=== PATIENT | female | born 1985 | race Caucasian/White ===

== ENCOUNTER → 2020-06-29 14:44 | Outpatient (BNVA) | payer BC, SELFPAY | PROVIDERS: PCP Family Medicine; Visit Provider Advanced Practice Midwife | DX: Z76.89 Persons encountering health services in other specified circumstances (principal) ==

== ENCOUNTER → 2020-07-13 15:38 | Outpatient (BNVA) | payer BC, SELFPAY | PROVIDERS: PCP Family Medicine; Visit Provider Advanced Practice Midwife | DX: Z76.89 Persons encountering health services in other specified circumstances (principal) ==

== ENCOUNTER 2020-08-15 09:04 | Outpatient (REF) | payer BC, SELFPAY ==
[2020-08-16 09:42] LABS: BV Int Neg Control Negative (Negative); BV Int Pos Control Positive (Positive)
== END 2020-08-15 09:05 | disposition home or self-care (01) ==
LOC: HO.LAB 09:04
PROVIDERS: Visit Provider Obstetrics & Gynecology
DX: R10.2 Pelvic and perineal pain (principal)
CPT/HCPCS: 87480; 87510; 87660

== ENCOUNTER 2020-10-04 10:43 | Emergency (ER) | payer BC, SELFPAY ==
--- NOTE | 2020-10-04 09:34 | ECG_ITS ---
Test Reason : TACHYCARDIA Blood Pressure : / mmHG Vent. Rate : 097 BPM Atrial Rate : 097 BPM P-R Int : 140 ms QRS Dur : 068 ms QT Int : 370 ms P-R-T Axes : 030 051 032 degrees QTc Int : 469 ms Normal sinus rhythm Normal ECG When compared with ECG of 04-OCT-2020 11:01, No significant change was found Referred By: Chante Lee Electronically Signed By:BUDDY FORRESTER MD
--- NOTE | 2020-10-04 10:54 | ECG_ITS ---
Test Reason : CHEST PAIN Blood Pressure : / mmHG Vent. Rate : 092 BPM Atrial Rate : 092 BPM P-R Int : 140 ms QRS Dur : 066 ms QT Int : 366 ms P-R-T Axes : 039 075 041 degrees QTc Int : 452 ms Poor data quality, interpretation may be adversely affected Normal sinus rhythm Normal ECG No previous ECGs available Referred By: Generic ED Physician Electronically Signed By:BUDDY FORRESTER MD
[2020-10-04 11:06] VITALS: PULSE 92; RESP 16; TEMP 36.9; O2SAT 100; BMI 26.1
[2020-10-04 17:36] VITALS: BP 132/72; PULSE 100; RESP 18; TEMP 37.1; O2SAT 100
--- NOTE | 2020-10-04 17:43 | ED_ITS ---
HPI - Arrhythmia/Palpitations General Chief Complaint: Arrhythmia/Palpitations Stated Complaint: CHEST PRESSURE Time Seen by Provider: 10/04/20 17:14 Source: patient Mode of arrival: ambulatory Limitations: no limitations History of Present Illness HPI narrative: 34 y/o female with history of COVID-19 about 1 month ago presents to the ED with intermittent palpitations as well as an epsiode of nausea and chest tightness that occurred while she was driving to work this morning. Symptoms are now resolved. She was admitted at [facility] when she was dx with COVID due to tachycardia (sinus) to 140's. She reportedly had a normal ECHO. She went back to the ED at [place] with palpitations and was start ed on propranolol 4 days ago. She denies SOB, chest pain, N/V/D. Negative personal history of cardiac issues but positive history in her sister who in her 30's from complications of drug use and heart attack. complaint: palpitations Onset (ago): week(s) Duration: intermittent Severity: moderate Context: occurred during rest Associated symptoms: chest pain and anxiety Related Data Previous Rx's Medication Instructions Recorded nystatin 100,000 unit/gram topical 1 applic TOPICAL BID #15 g 07/13/20 ointment Allergies Allergy/AdvReac Type Severity Reaction Status Date / Time No Known Allergies Allergy Unknown Verified 08/15/20 09:25 Review of Systems Review of Systems: Constitutional: No Fever, No Chills ENT/Mouth: No sore throat, No Rhinorrhea, No Swallowing Difficulty Cardiovascular: + Chest Pain, No SOB, No Orthopnea, No Edema Respiratory: No Cough, No Sputum, No Wheezing, No dyspnea Gastrointestinal: + Nausea, No Vomiting, No Diarrhea, No abdominal Pain Genitourinary: No Dysuria, No Urinary Frequency, No Hematuria Musculoskeletal: No joint pain, No Myalgias Skin: No Skin Lesions, No rash Neuro: No Weakness, No Numbness, + Dizziness, No Headache Psych: + Anxiety/Panic, No Depression Heme/Lymph: No Bruising PMFSH Past Medical History Attestation statement: The following information was validated with the patient. Surgical History History of 3 sections Hx of tubal ligation Social History Social History Alcohol intake: never Smoking Status: Never smoker Advance Directives: No Advance Directives Information Provided: No Sexual orientation: Straight/Heterosexual Gender identity: female Physical Exam Vital Signs: Vital Signs: Last Vital Signs Temp 98.8 F 10/04/20 17:36 Pulse 100 10/04/20 17:36 Resp 18 10/04/20 17:36 BP 132/72 10/04/20 17:36 Pulse Ox 100 10/04/20 17:36 Body Mass Index 26.1 Appearance: Alert. Oriented X3. No acute distress. Eyes: Pupils equal, round and reactive to light. ENT: Pharynx normal. Neck: Normal inspection. Neck supple. CVS: Normal heart rate and rhythm. Pulses normal. No anterior chest wall tenderness. Respiratory: No respiratory distress. Breath sounds normal. Abdomen: Soft and nontender. +BS x4 Skin: Skin warm and dry. Normal skin color. Normal skin turgor. No rashes. Extremities: No lower extremity edema. Negative Loraine's sign Neuro: Oriented X 3. No motor deficit. No sensory deficit. Course Course Course Narrative: 34 y/o female with history of COVID-19 presenting with palpitations since her diagnosis 1 month ago. Seen at [place] ED and started on Propranolol. Given family hx will need to f/u ME and given COVID hx will need to r/o PE. She is currently asymptomatic with HR 90's. Exam is benign. EKG, lab work pending. Reevaluation(s) Reevaluation #1: Troponin negative. DDIMER negative which are reassuring against ACS and PE. She has already placed a call out to [facility] who plan to call her in 2 days to arrange an appointment. No arrhythmias seen on monitor while she has been in the ED. She feels well. She is stable for discharge. MDM - Arrhythmia/Palpitations Differential Diagnosis Differential diagnosis: Likely palpitations, anxiety, sinus tachycardia, artial fibrillation, artial flutter, ventricular premature beats, supraventricular tachycardia and ventricular tachycardia Medical Records Attestation: I reviewed the patient's medical records. Lab Data Attestation: I reviewed the patient's lab results. Result diagrams: 10/04/20 17:35 10/04/20 17:35 Labs: Lab Results 10/04/20 10/04/20 10/04/20 Range/Units 17:35 17:35 17:35 WBC 6.2 (4.8-10.8) X10*3/uL RBC 4.68 (4.20-5.50) X10*6/uL Hgb 12.1 (12.0-16.0) g/dl Hct 38.4 (37-47) % MCV 82.1 (80-98) fL MCH 25.9 L (27.0-33.0) pg MCHC 31.5 (31.0-35.0) g/dl RDW 14.6 (11.0-16.0) % Plt Count 366 (160-400) X10*3/uL MPV 10.0 (9.4-12.3) fL Immature Gran % (Auto) 0.2 (0.0-0.4) % Neut % (Auto) 60.4 (45-73) % Lymph % (Auto) 29.5 (20-40) % [place] % (Auto) 7.9 (2-11) % Eos % (Auto) 1.4 (0-4) % Baso % (Auto) 0.6 (0-2) % Lymph # (Auto) 1.8 (1.2-4.9) X10*3/uL [place] # (Auto) 0.5 (0.1-1.2) X10*3/uL Eos # (Auto) 0.1 (0.0-0.4) X10*3/uL Baso # (Auto) 0.0 (0.0-0.2) X10*3/uL Abs Immat Gran (auto) 0.01 (0.00-0.03) X10*3/uL Absolute Neuts (auto) 3.8 (2.0-8.3) X10*3/uL Absolute Nucleated RBC 0.000 (0.0-0.012) X10*3/uL Nucleated RBC % (auto) 0.0 (0.0-0.2) /100WBC D-Dimer < 200 NG/ML Hold Blue Top SEE NOTE Sodium 140 (135-145) mmol/L Potassium 3.7 (3.3-5.1) mmol/L Chloride 104 (96-108) mmol/L Carbon Dioxide 26 (22-29) mmol/L Anion Gap 14 (12-20) BUN 9 (9-16) mg/dL Creatinine 0.76 (0.5-1.4) mg/dL Estim Creat Clear Calc 104.9 Estimated GFR > 60 Random Glucose 83 (60-115) mg/dL Calcium 9.4 (8.4-10.2) mg/dL Magnesium 2.0 (1.6-2.6) mg/dL Total Bilirubin 0.4 (0.0-1.0) mg/dL Direct Bilirubin 0.2 (0.0-0.5) mg/dL AST 14 (5-31) U/L ALT 9 (0-31) U/L Alkaline Phosphatase 46 (39-117) U/L Troponin I High Sens (<3.5-17.0) ng/L B-Natriuretic Peptide (<100) pg/mL Total Protein 7.5 (6.5-8.0) g/dL Albumin 4.6 (3.5-5.0) g/dL TSH (0.32-4.0) uIU/mL Urine Color Urine Appearance Urine pH (5.0-8.0) Ur Specific [place] (1.005-1.025) Urine Protein (NEG-TRACE) MG/DL Urine Glucose (UA) (NEG) MG/DL Urine Ketones (NEG) MG/DL Urine Blood (NEG) Urine Nitrite (NEG) Ur Leukocyte Esterase (NEG) Urine Test (NEGATIVE) Urine Opiates Screen (Not Detect) Ur Barbiturates Screen (Not Detect) Ur Phencyclidine Scrn (Not Detect) Ur Amphetamines Screen (Not Detect) U Benzodiazepines Scrn (Not Detect) Urine Cocaine Screen (Not Detect) U Marijuana (THC) Screen (Not Detect) Ethyl Alcohol mg/dL 10/04/20 10/04/20 10/04/20 Range/Units 17:35 17:35 17:35 WBC (4.8-10.8) X10*3/uL RBC (4.20-5.50) X10*6/uL Hgb (12.0-16.0) g/dl Hct (37-47) % MCV (80-98) fL MCH (27.0-33.0) pg MCHC (31.0-35.0) g/dl RDW (11.0-16.0) % Plt Count (160-400) X10*3/uL MPV (9.4-12.3) fL Immature Gran % (Auto) (0.0-0.4) % Neut % (Auto) (45-73) % Lymph % (Auto) (20-40) % [place] % (Auto) (2-11) % Eos % (Auto) (0-4) % Baso % (Auto) (0-2) % Lymph # (Auto) (1.2-4.9) X10*3/uL [place] # (Auto) (0.1-1.2) X10*3/uL Eos # (Auto) (0.0-0.4) X10*3/uL Baso # (Auto) (0.0-0.2) X10*3/uL Abs Immat Gran (auto) (0.00-0.03) X10*3/uL Absolute Neuts (auto) (2.0-8.3) X10*3/uL Absolute Nucleated RBC (0.0-0.012) X10*3/uL Nucleated RBC % (auto) (0.0-0.2) /100WBC D-Dimer NG/ML Hold Blue Top Sodium (135-145) mmol/L Potassium (3.3-5.1) mmol/L Chloride (96-108) mmol/L Carbon Dioxide (22-29) mmol/L Anion Gap (12-20) BUN (9-16) mg/dL Creatinine (0.5-1.4) mg/dL Estim Creat Clear Calc Estimated GFR Random Glucose (60-115) mg/dL Calcium (8.4-10.2) mg/dL Magnesium (1.6-2.6) mg/dL Total Bilirubin (0.0-1.0) mg/dL Direct Bilirubin (0.0-0.5) mg/dL AST (5-31) U/L ALT (0-31) U/L Alkaline Phosphatase (39-117) U/L Troponin I High Sens < 3.5 (<3.5-17.0) ng/L B-Natriuretic Peptide 10 (<100) pg/mL Total Protein (6.5-8.0) g/dL Albumin (3.5-5.0) g/dL TSH 1.68 (0.32-4.0) uIU/mL Urine Color Urine Appearance Urine pH (5.0-8.0) Ur Specific [place] (1.005-1.025) Urine Protein (NEG-TRACE) MG/DL Urine Glucose (UA) (NEG) MG/DL Urine Ketones (NEG) MG/DL Urine Blood (NEG) Urine Nitrite (NEG) Ur Leukocyte Esterase (NEG) Urine Test (NEGATIVE) Urine Opiates Screen (Not Detect) Ur Barbiturates Screen (Not Detect) Ur Phencyclidine Scrn (Not Detect) Ur Amphetamines Screen (Not Detect) U Benzodiazepines Scrn (Not Detect) Urine Cocaine Screen (Not Detect) U Marijuana (THC) Screen (Not Detect) Ethyl Alcohol < 10 mg/dL 10/04/20 10/04/20 Range/Units 17:59 17:59 WBC (4.8-10.8) X10*3/uL RBC (4.20-5.50) X10*6/uL Hgb (12.0-16.0) g/dl Hct (37-47) % MCV (80-98) fL MCH (27.0-33.0) pg MCHC (31.0-35.0) g/dl RDW (11.0-16.0) % Plt Count (160-400) X10*3/uL MPV (9.4-12.3) fL Immature Gran % (Auto) (0.0-0.4) % Neut % (Auto) (45-73) % Lymph % (Auto) (20-40) % [place] % (Auto) (2-11) % Eos % (Auto) (0-4) % Baso % (Auto) (0-2) % Lymph # (Auto) (1.2-4.9) X10*3/uL [place] # (Auto) (0.1-1.2) X10*3/uL Eos # (Auto) (0.0-0.4) X10*3/uL Baso # (Auto) (0.0-0.2) X10*3/uL Abs Immat Gran (auto) (0.00-0.03) X10*3/uL Absolute Neuts (auto) (2.0-8.3) X10*3/uL Absolute Nucleated RBC (0.0-0.012) X10*3/uL Nucleated RBC % (auto) (0.0-0.2) /100WBC D-Dimer NG/ML Hold Blue Top Sodium (135-145) mmol/L Potassium (3.3-5.1) mmol/L Chloride (96-108) mmol/L Carbon Dioxide (22-29) mmol/L Anion Gap (12-20) BUN (9-16) mg/dL Creatinine (0.5-1.4) mg/dL Estim Creat Clear Calc Estimated GFR Random Glucose (60-115) mg/dL Calcium (8.4-10.2) mg/dL Magnesium (1.6-2.6) mg/dL Total Bilirubin (0.0-1.0) mg/dL Direct Bilirubin (0.0-0.5) mg/dL AST (5-31) U/L ALT (0-31) U/L Alkaline Phosphatase (39-117) U/L Troponin I High Sens (<3.5-17.0) ng/L B-Natriuretic Peptide (<100) pg/mL Total Protein (6.5-8.0) g/dL Albumin (3.5-5.0) g/dL TSH (0.32-4.0) uIU/mL Urine Color YELLOW Urine Appearance CLEAR Urine pH 6.5 (5.0-8.0) Ur Specific [place] 1.015 (1.005-1.025) Urine Protein NEG (NEG-TRACE) MG/DL Urine Glucose (UA) NEG (NEG) MG/DL Urine Ketones >=80 (NEG) MG/DL Urine Blood NEG (NEG) Urine Nitrite NEG (NEG) Ur Leukocyte Esterase NEG (NEG) Urine Test NEGATIVE (NEGATIVE) Urine Opiates Screen Not Detected (Not Detect) Ur Barbiturates Screen Not Detected (Not Detect) Ur Phencyclidine Scrn Not Detected (Not Detect) Ur Amphetamines Screen Not Detected (Not Detect) U Benzodiazepines Scrn Not Detected (Not Detect) Urine Cocaine Screen Not Detected (Not Detect) U Marijuana (THC) Screen Not Detected (Not Detect) Ethyl Alcohol mg/dL ECG Data Attestation: I personally reviewed and interpreted this ECG as follows: ECG interpretation date: 10/04/20 Interpretation: 11:01 - normal sinus rhythm, HR 92 bpm, normal NE interval, normal Qtc, artifact present, poor quality 17:46 - normal sinus rhythm, HR 97 bpm, normal NE interval, normal QTc. no ST segment elevations Scores Heart Score History: -0- slightly suspicious ECG: -0- normal Age: -0- < or = 45 Risk factory: -0- no risk factors known Troponin: -0- < or = normal limit Score: 0 Risk: 1.7% Discharge Plan Discharge Clinical Impression: Palpitations Patient Disposition: Home, Self-Care Instructions: Heart Palpitations (ED) Additional Instructions: Your workup today was normal. Your EKG was unremarkable. Recommend continuing the propranolol. Recommend follow up with Cardiology for further workup. If you have persistent or worsening symptoms come back to the ER for further evalution. Prescriptions: No Action nystatin 100,000 unit/gram ointment 1 applic topical BID Qty: 15 RF: 1 Referrals: Tone Dugan MD [Physician] - 2 days (palpitations s/p COVID)
[2020-10-04 17:48] LABS: MANUAL DIFF FLAG NO
[2020-10-04 17:52] LABS: Basophils Percent Auto 0.6 % (0-2); Eosinophils Absolute Auto 0.1 X10*3/uL (0.0-0.4); Eosinophils Percent Auto 1.4 % (0-4); Hematocrit 38.4 % (37-47); Hemoglobin 12.1 g/dl (12.0-16.0); Imm Gran Abs Auto 0.01 X10*3/uL (0.00-0.03); Imm Gran Pct Auto 0.2 % (0.0-0.4); Lymphocytes Absolute Auto 1.8 X10*3/uL (1.2-4.9); Lymphocytes Percent Auto 29.5 % (20-40); Mean Corpuscular HGB Conc 31.5 g/dl (31.0-35.0); Mean Corpuscular Hemoglobin 25.9 pg (27.0-33.0); Mean Corpuscular Volume 82.1 fL (80-98); Monocytes Absolute Auto 0.5 X10*3/uL (0.1-1.2); Monocytes Percent Auto 7.9 % (2-11); Neutrophils Absolute Auto 3.8 X10*3/uL (2.0-8.3); Neutrophils Percent Auto 60.4 % (45-73); Platelet Count 366 X10*3/uL (160-400); Red Blood Count 4.68 X10*6/uL (4.20-5.50); Red Cell Distribution Width 14.6 % (11.0-16.0); White Blood Count 6.2 X10*3/uL (4.8-10.8)
[2020-10-04 18:02] LABS: D Dimer < 200 NG/ML
[2020-10-04 18:12] LABS: Glucose Urine UA NEG (NEG); Leukocyte Esterase Urine NEG (NEG); Nitrite Urine NEG (NEG); PH 6.5 (5.0-8.0); Specific Gravity - Urine 1.015 (1.005-1.025); Urine Blood NEG (NEG); Urine Ketones >=80 MG/DL (NEG); Urine Protein NEG (NEG-TRACE)
[2020-10-04 18:12] LABS: Ethanol < 10 mg/dL
[2020-10-04 18:15] LABS: Alanine Aminotransferase 9 U/L (0-31); Albumin Level 4.6 g/dL (3.5-5.0); Alkaline Phosphatase 46 U/L (39-117); Anion Gap 14 (12-20); Aspartate Amino Transferase 14 U/L (5-31); Bilirubin Direct 0.2 mg/dL (0.0-0.5); Bilirubin Total 0.4 mg/dL (0.0-1.0); Blood Urea Nitrogen 9 mg/dL (9-16); Calcium 9.4 mg/dL (8.4-10.2); Carbon Dioxide 26 mmol/L (22-29); Chloride 104 mmol/L (96-108); Creatinine Clr Calc Pharmacy 104.9; Estimated Glomerular Filt Rate > 60; Glucose Random 83 mg/dL (60-115); Potassium 3.7 mmol/L (3.3-5.1); Sodium 140 mmol/L (135-145); Total Protein 7.5 g/dL (6.5-8.0)
[2020-10-04 18:16] LABS: Appearance Urine CLEAR; Color Urine YELLOW
[2020-10-04 18:17] LABS: UPreg QC Valid YES; Urine Pregnancy NEGATIVE (NEGATIVE)
[2020-10-04 18:19] LABS: B Type Natriuretic Peptide 10 pg/mL (<100); Troponin-I High Sensitivity < 3.5 ng/L (<3.5-17.0)
[2020-10-04 18:33] LABS: TSH reflex Free T4 1.68 uIU/mL (0.32-4.0)
[2020-10-04 18:34] LABS: Amphetamine Screen Urine Not Detected (Not Detect); Barbiturates, Urine Not Detected (Not Detect); Benzodiazepines Screen Urine Not Detected (Not Detect); Cannabinoid Screen Urine Not Detected (Not Detect); Cocaine Screen Urine Not Detected (Not Detect); Opiate Screen Urine Not Detected (Not Detect); Phencyclidine Screen Urine Not Detected (Not Detect)
== END 2020-10-04 19:11 | disposition home or self-care (01) ==
PROVIDERS: Physician Assistant; Emergency Provider Emergency Medicine; PCP Family Medicine
DX: R00.2 Palpitations (principal); Z86.16 Personal history of COVID-19
CPT/HCPCS: 36415; 80048; 80076; 80307; 80320; 81003; 81025; 83735; 83880; 84443; 84484; 85025; 85379; 93005; 99284

== ENCOUNTER 2020-10-25 12:34 | Emergency (ER) | payer BC, SELFPAY ==
--- NOTE | ~2020-10-25 | XR_ITS ---
EXAMINATION: CHEST 1 VIEW CLINICAL INFORMATION: Chest pain. COMPARISON: None. TECHNIQUE: An AP view of the chest is provided. FINDINGS: The cardiac silhouette is not enlarged. The mediastinal and hilar contours are unremarkable. There are neither pleural effusions nor pneumothoraces. There are no consolidations. The osseous structures are unremarkable. XR/XR chest 1V IMPRESSION: No evidence for acute disease.
--- NOTE | 2020-10-25 12:47 | ECG_ITS ---
Test Reason : CP Blood Pressure : / mmHG Vent. Rate : 100 BPM Atrial Rate : 100 BPM P-R Int : 156 ms QRS Dur : 072 ms QT Int : 364 ms P-R-T Axes : 044 057 035 degrees QTc Int : 469 ms Normal sinus rhythm Normal ECG When compared with ECG of 04-OCT-2020 17:46, No significant change was found Referred By: Generic ED Physician Electronically Signed By:BUDDY FORRESTER MD
[2020-10-25 13:00] VITALS: BP 111/88; PULSE 92; RESP 18; TEMP 36.6; O2SAT 100; BMI 26.3
--- NOTE | 2020-10-25 20:41 | ED_ITS ---
HPI - Chest Pain General Chief Complaint: Chest Pain Stated Complaint: chest pressure Time Seen by Provider: 10/25/20 20:16 Source: patient Mode of arrival: ambulatory Limitations: no limitations History of Present Illness HPI narrative: 34 years old female tested positive for COVID about 6 weeks ago, symptoms was only loss of taste and smell, patient after developed COVID started to have constant chest pain and palpitation for the past 6 weeks, patient was seen and evaluated at [facility] required 2 days admission in the hospital for cardiac monitoring, reportedly all the workup was negative, patient also had cardiology workup including echocardiogram reportedly was unremarkable study (reports are not available) patient also has a follow-up appointment with cardiology in 1 week. Patient presented today with constant 6 weeks of chest pressure, described it as mild, pressure in character, no radiation, nothing make it worse, nothing makes it better, associated with palpitations sometimes on and off.. Sister at young age but had more complicated history of alcoholism and history of alcohol-related cardiomyopathy. Patient admitted to history of anxiety. No recent travel, no lower extremity swelling or tenderness, no history of PE/DVT. Related Data Previous Rx's Medication Instructions Recorded nystatin 100,000 unit/gram topical 1 applic TOPICAL BID #15 g 07/13/20 ointment Allergies Allergy/AdvReac Type Severity Reaction Status Date / Time No Known Allergies Allergy Unknown Verified 10/25/20 13:00 Review of Systems Review of Systems: All other systems are reviewed and are negative Constitutional: Reports as per HPI and Reports no additional constitutional complaints Eyes: Reports as per HPI and Reports no additional eye complaints Reports system reviewed and no additional complaints, except as documented Cardiovascular: Reports as per HPI and Reports no additional cardiovascular complaints Respiratory: Reports as per HPI and Reports no additional respiratory complaints Gastrointestinal: Reports as per HPI and Reports no additional gastrointestinal complaints Genitourinary: Reports no additional female genitourinary complaints Musculoskeletal: Reports no additional musculoskeletal complaints Skin/Breast: Reports system reviewed and no additional complaints, except as docu Psychiatric: Reports no additional psychiatric complaints Endocrine: Reports no additional endocrine complaints Hematologic/Lymphatic: Reports no additional hematologic/lymphatic complaints Allergic/Immunologic: Reports no additional allergic/immunologic complaints Reports system reviewed and no additional complaints, except as documented and Reports Abnormal speech present [facility] Past Medical History Medical History COVID-19 Surgical History History of 3 sections Hx of tubal ligation Social History Social History Alcohol intake: never Smoking Status: Never smoker Advance Directives: No Advance Directives Information Provided: No Sexual orientation: Straight/Heterosexual Gender identity: female Physical Exam Vital Signs: Vital Signs: Last Vital Signs Temp 97.8 F 10/25/20 13:00 Pulse 92 10/25/20 13:00 Resp 18 10/25/20 13:00 BP 111/88 10/25/20 13:00 Pulse Ox 100 10/25/20 13:00 Body Mass Index 26.3 Vital signs have been reviewed as appeared to be correct. Blood pressure normal. Heart rate normal. Respiration rate normal. Temperature normal. Oxygen saturation normal. Appearance: Alert. Oriented X3. No acute distress. Appear anxious Head: Normal external exam. Normocephalic. Atraumatic. No Norris signs noted. No raccoon eyes noted Eyes: PERRLA. EOMI. Conjunctiva and sclera normal. Eyelids normal. ENT: TM's Normal. Pharynx normal. Uvula midline. Moist mucous membranes. No trismus noted. No drooling noted. No muffled voice noted. Neck: Normal inspection. Neck supple. FROM. No adenopathy. Thyroid Normal. No meningeal signs. No neck mass noted. CVS: Normal heart rate and rhythm. Heart sound normal. No murmurs noted. Pulses normal throughout. Respiratory: No respiratory distress. Painless inspiration. Breath sounds normal. No wheezes/rales/rhonchi noted. Chest nontender. No accessory muscle usage noted or decreased air movement noted. Abdomen: Soft and nontender. Bowel sounds normal in all 4 quadrants. No distention noted. No organomegaly noted. No visible injury noted. Back: No CVA tenderness. Full range of motion noted. Skin: Skin warm and dry. Normal skin color. Normal skin turgor. No rashes/lesions/lacerations noted. Extremities: No lower extremity edema. Extremities exhibit normal range of motion. Extremities nontender. Neuro: Oriented X 3. No motor deficit. No sensory deficit. Reflexes normal. Course Course Course Narrative: Assessment and plan. 34-year-old female recent infection was COVID-19 left her with loss of taste and smell (patient stated that taste and smell are back) but she is developing intermittent palpitation, patient was seen at [facility] and hospitalized for 2 days with reportedly negative workup, patient also was seen by outpatient vocational training instructor with a negative echocardiogram. Patient appears anxious, with unremarkable workup in the emergency department. Patient unable to give urine but patient confirmed there is no symptoms for UTI/no chance of being . MDM - Chest Pain Lab Data Attestation: I reviewed the patient's lab results. Result diagrams: 10/25/20 20:48 10/25/20 20:48 Labs: Lab Results 10/25/20 10/25/20 10/25/20 Range/Units 20:48 20:48 20:48 WBC 5.4 (4.8-10.8) X10*3/uL RBC 4.64 (4.20-5.50) X10*6/uL Hgb 12.0 (12.0-16.0) g/dl Hct 37.9 (37-47) % MCV 81.7 (80-98) fL MCH 25.9 L (27.0-33.0) pg MCHC 31.7 (31.0-35.0) g/dl RDW 14.3 (11.0-16.0) % Plt Count 264 D (160-400) X10*3/uL MPV 10.2 (9.4-12.3) fL Immature Gran % (Auto) 0.2 (0.0-0.4) % Neut % (Auto) 57.8 (45-73) % Lymph % (Auto) 32.1 (20-40) % [place] % (Auto) 7.1 (2-11) % Eos % (Auto) 1.5 (0-4) % Baso % (Auto) 1.3 (0-2) % Lymph # (Auto) 1.7 (1.2-4.9) X10*3/uL [place] # (Auto) 0.4 (0.1-1.2) X10*3/uL Eos # (Auto) 0.1 (0.0-0.4) X10*3/uL Baso # (Auto) 0.1 (0.0-0.2) X10*3/uL Abs Immat Gran (auto) 0.01 (0.00-0.03) X10*3/uL Absolute Neuts (auto) 3.1 (2.0-8.3) X10*3/uL Absolute Nucleated RBC 0.000 (0.0-0.012) X10*3/uL Nucleated RBC % (auto) 0.0 (0.0-0.2) /100WBC D-Dimer < 200 NG/ML Sodium 141 (135-145) mmol/L Potassium 3.8 (3.3-5.1) mmol/L Chloride 105 (96-108) mmol/L Carbon Dioxide 24 (22-29) mmol/L Anion Gap 16 (12-20) BUN 11 (9-16) mg/dL Creatinine 0.72 (0.5-1.4) mg/dL Estim Creat Clear Calc 111.1 Estimated GFR > 60 Random Glucose 80 (60-115) mg/dL Calcium 9.8 (8.4-10.2) mg/dL B-Natriuretic Peptide (<100) pg/mL Lipase 32 (8-78) U/L 10/25/20 Range/Units 20:48 WBC (4.8-10.8) X10*3/uL RBC (4.20-5.50) X10*6/uL Hgb (12.0-16.0) g/dl Hct (37-47) % MCV (80-98) fL MCH (27.0-33.0) pg MCHC (31.0-35.0) g/dl RDW (11.0-16.0) % Plt Count (160-400) X10*3/uL MPV (9.4-12.3) fL Immature Gran % (Auto) (0.0-0.4) % Neut % (Auto) (45-73) % Lymph % (Auto) (20-40) % [place] % (Auto) (2-11) % Eos % (Auto) (0-4) % Baso % (Auto) (0-2) % Lymph # (Auto) (1.2-4.9) X10*3/uL [place] # (Auto) (0.1-1.2) X10*3/uL Eos # (Auto) (0.0-0.4) X10*3/uL Baso # (Auto) (0.0-0.2) X10*3/uL Abs Immat Gran (auto) (0.00-0.03) X10*3/uL Absolute Neuts (auto) (2.0-8.3) X10*3/uL Absolute Nucleated RBC (0.0-0.012) X10*3/uL Nucleated RBC % (auto) (0.0-0.2) /100WBC D-Dimer NG/ML Sodium (135-145) mmol/L Potassium (3.3-5.1) mmol/L Chloride (96-108) mmol/L Carbon Dioxide (22-29) mmol/L Anion Gap (12-20) BUN (9-16) mg/dL Creatinine (0.5-1.4) mg/dL Estim Creat Clear Calc Estimated GFR Random Glucose (60-115) mg/dL Calcium (8.4-10.2) mg/dL B-Natriuretic Peptide < 10 (<100) pg/mL Lipase (8-78) U/L Imaging Data Chest x-ray: Radiologist's impression: No evidence for acute disease. ECG Data ECG #1: Interpretation: Normal sinus rhythm at 100 BPM, normal axis deviation, normal intervals, no ST-T changes. Discharge Plan Discharge Clinical Impression: Palpitation Patient Disposition: Home, Self-Care Instructions: Heart Palpitations (ED) Additional Instructions: Keep your appointment with your vocational training instructor as already scheduled next week. Prescriptions: No Action nystatin 100,000 unit/gram ointment 1 applic topical BID Qty: 15 RF: 1 Referrals: Amalia Fernandez MD [Primary Care Provider] - 2 days
[2020-10-25] MEDS: 0.9 % Sodium Chloride 1,000 ML 999 ML IVCONT (20:51)
[2020-10-25 20:55] LABS: MANUAL DIFF FLAG NO
[2020-10-25 21:00] LABS: Basophils Absolute Auto 0.1 X10*3/uL (0.0-0.2); Basophils Percent Auto 1.3 % (0-2); Eosinophils Absolute Auto 0.1 X10*3/uL (0.0-0.4); Eosinophils Percent Auto 1.5 % (0-4); Hematocrit 37.9 % (37-47); Imm Gran Abs Auto 0.01 X10*3/uL (0.00-0.03); Imm Gran Pct Auto 0.2 % (0.0-0.4); Lymphocytes Absolute Auto 1.7 X10*3/uL (1.2-4.9); Lymphocytes Percent Auto 32.1 % (20-40); Mean Corpuscular HGB Conc 31.7 g/dl (31.0-35.0); Mean Corpuscular Hemoglobin 25.9 pg (27.0-33.0); Mean Corpuscular Volume 81.7 fL (80-98); Mean Platelet Volume 10.2 fL (9.4-12.3); Monocytes Absolute Auto 0.4 X10*3/uL (0.1-1.2); Monocytes Percent Auto 7.1 % (2-11); Neutrophils Absolute Auto 3.1 X10*3/uL (2.0-8.3); Neutrophils Percent Auto 57.8 % (45-73); Platelet Count 264 X10*3/uL (160-400); Red Blood Count 4.64 X10*6/uL (4.20-5.50); Red Cell Distribution Width 14.3 % (11.0-16.0); White Blood Count 5.4 X10*3/uL (4.8-10.8)
[2020-10-25 21:18] LABS: D Dimer < 200 NG/ML
[2020-10-25 21:26] LABS: Anion Gap 16 (12-20); Blood Urea Nitrogen 11 mg/dL (9-16); Calcium 9.8 mg/dL (8.4-10.2); Carbon Dioxide 24 mmol/L (22-29); Chloride 105 mmol/L (96-108); Creatinine Clr Calc Pharmacy 111.1; Estimated Glomerular Filt Rate > 60; Glucose Random 80 mg/dL (60-115); Lipase 32 U/L (8-78); Potassium 3.8 mmol/L (3.3-5.1); Sodium 141 mmol/L (135-145)
[2020-10-25 21:32] LABS: B Type Natriuretic Peptide < 10 pg/mL (<100)
[2020-10-25 22:34] VITALS: PULSE 85; RESP 18; O2SAT 100
== END 2020-10-25 22:45 | disposition home or self-care (01) ==
PROVIDERS: Emergency Provider Emergency Medicine; PCP Family Medicine
DX: R00.2 Palpitations (principal); Z86.16 Personal history of COVID-19; F41.9 Anxiety disorder, unspecified
CPT/HCPCS: 36415; 71045; 80048; 83690; 83880; 85025; 85379; 93005; 96360; 99284

== ENCOUNTER 2020-11-14 11:03 | Emergency (ER) | payer BC, SELFPAY ==
[2020-11-14 11:05] VITALS: BP 148/78; PULSE 109; RESP 18; TEMP 36.7; O2SAT 100; BMI 58.7
--- NOTE | 2020-11-14 12:25 | ED_ITS ---
HPI - General Adult General Chief complaint: General Medical Stated complaint: lung pain Time Seen by Provider: 11/14/20 12:05 Source: patient Mode of arrival: ambulatory Limitations: no limitations History of Present Illness HPI narrative: Patient was sent from urgent care for further evaluation. Patient was seen at urgent care today for chest wall/lung pain for 3 weeks. Patient was seen here October 25 for similar complaints had normal blood work, EKG and x-ray spray. Patient was known for COVID in September. Patient at urgent care this morning was informed that she had a normal EKG and normal chest x-ray. Patient denies any chest pain on inspiration, swelling of lower extremities, calf pain, coughing up blood, fever, chills recent long travel, recent surgery, or any control use. Related Data Previous Rx's Medication Instructions Recorded nystatin 100,000 unit/gram topical 1 applic TOPICAL BID #15 g 07/13/20 ointment Allergies Allergy/AdvReac Type Severity Reaction Status Date / Time No Known Allergies Allergy Unknown Verified 10/25/20 13:00 Review of Systems Constitutional: Constitutional: Reports as per HPI and Reports no additional constitutional complaints Eyes: Eyes: Reports as per HPI and Reports no additional eye complaints ENT: Reports system reviewed and no additional complaints, except as documented and Reports as per HPI Cardiovascular: Cardiovascular: Reports as per HPI, Reports no additional cardiovascular complaints and Reports chest pain (Three weeks) Respiratory: Respiratory: Reports as per HPI and Reports no additional respiratory complaints Gastrointestinal: Gastrointestinal: Reports as per HPI and Reports no additional gastrointestinal complaints Musculoskeletal: Musculoskeletal: Reports no additional musculoskeletal complaints and Reports as per HPI Neurologic: Reports system reviewed and no additional complaints, except as documented and Reports as per HPI Psychiatric: Psychiatric: Reports no additional psychiatric complaints and Reports as per HPI [facility] Past Medical History Medical History COVID-19 Surgical History History of 3 sections Hx of tubal ligation Social History Social History Alcohol intake: never Smoking Status: Never smoker Use of substances other than those prescribed or required for medical reasons: No Advance Directives: No Advance Directives Information Provided: No Sexual orientation: Straight/Heterosexual Gender identity: female Physical Exam Vital Signs: Vital Signs: Last Vital Signs Temp 98.1 F 11/14/20 11:05 Pulse 109 H 11/14/20 11:05 Resp 18 11/14/20 11:05 BP 148/78 H 11/14/20 11:05 Pulse Ox 100 11/14/20 11:05 Body Mass Index 58.7 Const: General: cooperative, healthy appearing, comfortable and no acute distress Orientation/consciousness: patient oriented x3 HENMT: Head: Yes normal to inspection and Yes No palpable skull fracture p resent Eyes: General: appearance normal, both eyes and all related structures Neck: Neck: Yes normal visual inspection, Yes full ROM, Yes no lymphadenopathy, Yes no meningeal signs, Yes trachea midline and No supple Chest: Other: Positive for left chest wall tenderness. Breast exams are normal. Chest palpation & inspection: normal inspection of the chest Resp: Effort & Inspection: normal respiratory effort and able to speak in complete sentences Cardio: Jugular venous distension: no JVD Heart sounds: S1 normal heart sound present and S2 normal heart sound present GI: Inspection: Yes normal to inspection and No abdominal wall ecchymosis Palpation (GI): Soft to palpation, not firm, nontender, no guarding and not rigid : General: No CVA tenderness and Yes no CVA tenderness Back/Spine/Pelvis: Back: no CVA tenderness, No CVA tenderness and No back tenderness Skin: General skin exam: no rashes or lesions noted and elasticity normal Neuro: General: patient oriented x3, gait normal, no meningeal signs and CN's II-XI intact bilaterally Extrem: General: Yes normal to inspection and Yes full ROM Psych: Appearance: grossly normal, well kempt and not disheveled Course Course Course Narrative: Patient states chest x-ray was normal this morning at urgent care as per she has report. Emergent care provider informed her her chest x-ray EKG was normal. Patient will have repeat EKG in the ER also have troponin and D-dimer make sure patient is not having risk for PE. Patient's present PERC score is 1 Reevaluation(s) Reevaluation #1: Patient's troponin D-dimer came back negative. Patient's EKG is normal. Patient blood cell count and lymphocyte slightly low and most likely due to patient being positive for COVID at the end of September. Patient vital signs are stable. D-dimer negative. Perc score 1. Negative for any retractions of chest. Patient speaking in full sentences. This has been going on for 3 weeks. Patient informed to follow-up with PCP. This is the 2nd time patient had presented to the ED with his symptom and D-dimer was negative. Repeat COVID swab came back negative. Not suspecting PE. Time: 14:24 Medical Decision Making MDM Narrative Medical decision making narrative: Chest pain Lab Data Result diagrams: 11/14/20 13:12 11/14/20 13:12 Labs: Lab Results 11/14/20 11/14/20 11/14/20 Range/Units 13:12 13:12 13:12 WBC 3.5 L (4.8-10.8) X10*3/uL RBC 4.41 (4.20-5.50) X10*6/uL Hgb 11.4 L (12.0-16.0) g/dl Hct 36.0 L (37-47) % MCV 81.6 (80-98) fL MCH 25.9 L (27.0-33.0) pg MCHC 31.7 (31.0-35.0) g/dl RDW 14.9 (11.0-16.0) % Plt Count 267 (160-400) X10*3/uL MPV 10.1 (9.4-12.3) fL Immature Gran % (Auto) 0.3 (0.0-0.4) % Neut % (Auto) 68.7 (45-73) % Lymph % (Auto) 21.7 (20-40) % [place] % (Auto) 7.2 (2-11) % Eos % (Auto) 0.9 (0-4) % Baso % (Auto) 1.2 (0-2) % Lymph # (Auto) 0.8 L (1.2-4.9) X10*3/uL [place] # (Auto) 0.3 (0.1-1.2) X10*3/uL Eos # (Auto) 0.0 (0.0-0.4) X10*3/uL Baso # (Auto) 0.0 (0.0-0.2) X10*3/uL Abs Immat Gran (auto) 0.01 (0.00-0.03) X10*3/uL Absolute Neuts (auto) 2.4 (2.0-8.3) X10*3/uL Absolute Nucleated RBC 0.000 (0.0-0.012) X10*3/uL Nucleated RBC % (auto) 0.0 (0.0-0.2) /100WBC PT 13.3 H (10.8-13.0) SEC INR 1.1 (0.9-1.1) APTT 33.8 (24.1-38.0) SEC D-Dimer < 200 NG/ML Sodium 141 (135-145) mmol/L Potassium 3.8 (3.3-5.1) mmol/L Chloride 106 (96-108) mmol/L Carbon Dioxide 27 (22-29) mmol/L Anion Gap 12 (12-20) BUN 9 (9-16) mg/dL Creatinine 0.79 (0.5-1.4) mg/dL Estim Creat Clear Calc 156.3 Estimated GFR > 60 Random Glucose 103 (60-115) mg/dL Calcium 9.4 (8.4-10.2) mg/dL Total Bilirubin 0.6 (0.0-1.0) mg/dL AST 15 (5-31) U/L ALT 10 (0-31) U/L Alkaline Phosphatase 44 (39-117) U/L Troponin I High Sens (<3.5-17.0) ng/L Total Protein 7.5 (6.5-8.0) g/dL Albumin 4.7 (3.5-5.0) g/dL Beta HCG, Quant mIU/mL COVID-19 ([facility]) (Negative) COVID-19 Clin Com 11/14/20 11/14/20 11/14/20 Range/Units 13:12 13:12 14:36 WBC (4.8-10.8) X10*3/uL RBC (4.20-5.50) X10*6/uL Hgb (12.0-16.0) g/dl Hct (37-47) % MCV (80-98) fL MCH (27.0-33.0) pg MCHC (31.0-35.0) g/dl RDW (11.0-16.0) % Plt Count (160-400) X10*3/uL MPV (9.4-12.3) fL Immature Gran % (Auto) (0.0-0.4) % Neut % (Auto) (45-73) % Lymph % (Auto) (20-40) % [place] % (Auto) (2-11) % Eos % (Auto) (0-4) % Baso % (Auto) (0-2) % Lymph # (Auto) (1.2-4.9) X10*3/uL [place] # (Auto) (0.1-1.2) X10*3/uL Eos # (Auto) (0.0-0.4) X10*3/uL Baso # (Auto) (0.0-0.2) X10*3/uL Abs Immat Gran (auto) (0.00-0.03) X10*3/uL Absolute Neuts (auto) (2.0-8.3) X10*3/uL Absolute Nucleated RBC (0.0-0.012) X10*3/uL Nucleated RBC % (auto) (0.0-0.2) /100WBC PT (10.8-13.0) SEC INR (0.9-1.1) APTT (24.1-38.0) SEC D-Dimer NG/ML Sodium (135-145) mmol/L Potassium (3.3-5.1) mmol/L Chloride (96-108) mmol/L Carbon Dioxide (22-29) mmol/L Anion Gap (12-20) BUN (9-16) mg/dL Creatinine (0.5-1.4) mg/dL Estim Creat Clear Calc Estimated GFR Random Glucose (60-115) mg/dL Calcium (8.4-10.2) mg/dL Total Bilirubin (0.0-1.0) mg/dL AST (5-31) U/L ALT (0-31) U/L Alkaline Phosphatase (39-117) U/L Troponin I High Sens < 3.5 (<3.5-17.0) ng/L Total Protein (6.5-8.0) g/dL Albumin (3.5-5.0) g/dL Beta HCG, Quant < 2 mIU/mL COVID-19 ([facility]) Negative (Negative) COVID-19 Clin Com See Note ECG Data Interpretation: Ventricular rate 86. Normal sinus rhythm. Pr interval 142. QTC 466. Negative STEMI Discharge Plan Discharge Clinical Impression: Chest pain Patient Disposition: Home, Self-Care Instructions: Chest Pain (ED), Chest Wall Pain (ED) Additional Instructions: Return to the ED immediately immediately for shortness of breath on exertion, swelling of lower extremity, calf pain, coughing up blood, dizziness, weakness, passing out, intractable fever, or any other concerning symptoms. Prescriptions: No Action nystatin 100,000 unit/gram ointment 1 applic topical BID Qty: 15 RF: 1 Referrals: Amalia Fernandez MD [Primary Care Provider] - 2 days (Chest pain. Normal EKG. Troponin negative. D-dimer negative. Patient had normal chest x-ray at Urgent Care this morning) Interventions: ED Discharge Assessment Last Done: 11/14/20 14:38 Discharge Date/Time: 11/14/20 14:39 Print Language: Congolese
--- NOTE | 2020-11-14 12:33 | ECG_ITS ---
Test Reason : CHEST TIGHTNESS Blood Pressure : / mmHG Vent. Rate : 086 BPM Atrial Rate : 086 BPM P-R Int : 142 ms QRS Dur : 068 ms QT Int : 390 ms P-R-T Axes : 038 061 049 degrees QTc Int : 466 ms Normal sinus rhythm with sinus arrhythmia Normal ECG When compared with ECG of 25-OCT-2020 13:02, No significant change was found Referred By: Richardson Christy Electronically Signed By:BUDDY FORRESTER MD
[2020-11-14 13:18] LABS: MANUAL DIFF FLAG NO
[2020-11-14 13:21] LABS: Basophils Percent Auto 1.2 % (0-2); Eosinophils Percent Auto 0.9 % (0-4); Hemoglobin 11.4 g/dl (12.0-16.0); Imm Gran Abs Auto 0.01 X10*3/uL (0.00-0.03); Imm Gran Pct Auto 0.3 % (0.0-0.4); Lymphocytes Absolute Auto 0.8 X10*3/uL (1.2-4.9); Lymphocytes Percent Auto 21.7 % (20-40); Mean Corpuscular HGB Conc 31.7 g/dl (31.0-35.0); Mean Corpuscular Hemoglobin 25.9 pg (27.0-33.0); Mean Corpuscular Volume 81.6 fL (80-98); Mean Platelet Volume 10.1 fL (9.4-12.3); Monocytes Absolute Auto 0.3 X10*3/uL (0.1-1.2); Monocytes Percent Auto 7.2 % (2-11); Neutrophils Absolute Auto 2.4 X10*3/uL (2.0-8.3); Neutrophils Percent Auto 68.7 % (45-73); Platelet Count 267 X10*3/uL (160-400); Red Blood Count 4.41 X10*6/uL (4.20-5.50); Red Cell Distribution Width 14.9 % (11.0-16.0); White Blood Count 3.5 X10*3/uL (4.8-10.8)
[2020-11-14 13:32] LABS: INTERNATIONAL NORM RATIO 1.1 (0.9-1.1); Prothrombin Time 13.3 SEC (10.8-13.0)
[2020-11-14 13:35] LABS: Partial Thromboplastin Time 33.8 SEC (24.1-38.0)
[2020-11-14 13:36] LABS: D Dimer < 200 NG/ML
[2020-11-14 13:43] LABS: Alanine Aminotransferase 10 U/L (0-31); Albumin Level 4.7 g/dL (3.5-5.0); Alkaline Phosphatase 44 U/L (39-117); Anion Gap 12 (12-20); Aspartate Amino Transferase 15 U/L (5-31); Bilirubin Total 0.6 mg/dL (0.0-1.0); Blood Urea Nitrogen 9 mg/dL (9-16); Calcium 9.4 mg/dL (8.4-10.2); Carbon Dioxide 27 mmol/L (22-29); Chloride 106 mmol/L (96-108); Creatinine Clr Calc Pharmacy 156.3; Estimated Glomerular Filt Rate > 60; Glucose Random 103 mg/dL (60-115); Potassium 3.8 mmol/L (3.3-5.1); Sodium 141 mmol/L (135-145); Total Protein 7.5 g/dL (6.5-8.0)
[2020-11-14 13:47] LABS: Troponin-I High Sensitivity < 3.5 ng/L (<3.5-17.0)
[2020-11-14 13:48] LABS: HCG Quantitative < 2 mIU/mL
[2020-11-14 15:12] LABS: COVID-19 Test Negative (Negative); IDNOW Serial# 9DD0AD1C
== END 2020-11-14 14:39 | disposition home or self-care (01) ==
PROVIDERS: Physician Assistant; Emergency Provider Emergency Medicine; PCP Family Medicine
DX: R07.9 Chest pain, unspecified (principal); Z20.822 Contact with and (suspected) exposure to COVID-19
CPT/HCPCS: 36415; 80053; 84484; 84702; 85025; 85379; 85610; 85730; 87635; 93005; 99283; 99284

== ENCOUNTER 2020-11-28 12:12 | Emergency (ER) | payer BC, SELFPAY ==
[2020-11-28 12:27] VITALS: BP 128/66; PULSE 91; RESP 16; O2SAT 100; BMI 25.7
[2020-11-28 14:00] VITALS: BP 126/75; PULSE 92; RESP 18; TEMP 37.1; O2SAT 100
--- NOTE | 2020-11-28 14:23 | ED_ITS ---
HPI - Abdominal Pain General Chief Complaint: Abdominal Pain Stated Complaint: ABD PAIN Time Seen by Provider: 11/28/20 14:08 Source: patient Mode of arrival: ambulatory History of Present Illness HPI narrative: 35-year-old female with a past medical history of COVID-19, C- section, tubal ligation, presenting to the ED complaining of lower abdominal cramping radiating around to right back/flank since yesterday with associated nausea. Denies fever, chills, vomiting, diarrhea, constipation, vaginal bleeding, decreased PO intake Related Data Previous Rx's Medication Instructions Recorded nystatin 100,000 unit/gram topical 1 applic TOPICAL BID #15 g 07/13/20 ointment ondansetron HCl [Zofran] 4 mg PO Q8H PRN #10 tab 11/28/20 Allergies Allergy/AdvReac Type Severity Reaction Status Date / Time No Known Allergies Allergy Unknown Verified 10/25/20 13:00 Review of Systems Review of Systems Constitutional: No Fever, No Chills Cardiovascular: No Chest Pain, No SOB Respiratory: No Cough Gastrointestinal: + Nausea, No Vomiting, No Diarrhea, No Constipation, +abd ominal pain Genitourinary: No Dysuria, No Urinary Frequency, No Hematuria, No Flank Pain Musculoskeletal: No joint pain, No Myalgias, No Joint Swelling Skin: No Skin Lesions, No rash Neuro: No Weakness, No Numbness, No Headache Yes all other systems are reviewed and are negative Physical Exam Vital Signs: Vital Signs: Last Vital Signs Temp 98.8 F 11/28/20 14:00 Pulse 92 11/28/20 14:00 Resp 18 11/28/20 14:00 BP 126/75 11/28/20 14:00 Pulse Ox 100 11/28/20 14:00 Body Mass Index 25.7 Const: General: cooperative, healthy appearing, comfortable and no acute distress Orientation/consciousness: patient oriented x3 Limitations: no limitations HENMT: Head: Yes normal to inspection Ears: hearing grossly normal bilaterally General nose exam: Normal external nose present Face and sinus: Yes normal facial exam Eyes: General: appearance normal, both eyes and all related structures EOM: EOMs intact bilaterally Neck: Neck: Yes normal visual inspection and Yes no meningeal signs Resp: Effort & Inspection: normal respiratory effort Cardio: Rate: regular rate GI: Inspection: Yes normal to inspection Palpation (GI): Soft to palpation, nontender, no guarding and not rigid : General: Yes no CVA tenderness Back/Spine/Pelvis: Back: no CVA tenderness Skin: Rashes: no rashes Wounds: no wounds Neuro: General: patient oriented x3 and no meningeal signs Gait exam (Neuro): Normal gait present Extrem: General: Yes normal to inspection Course Course Course Narrative: -chronic leukopenia 4.2, labs otherwise unremarkable, UA and negative XR chest 1V IMPRESSION: No evidence for acute disease Labs discussed with patient including worrisome signs and symptoms and strict return precautions. Patient verbalized understanding feel safe for discharge home to follow-up PCP/OBGYN MDM - Abdominal Pain MDM Narrative Medical decision making narrative: 35-year-old female with a past medical history of COVID-19, , tubal ligation, presenting to the ED complaining of lower abdominal cramping radiating around to right back/flank since yesterday with associated nausea. On exam VSS, NAD/well appearing, abdomen soft/nontender, no CVAT. Concern for possible UTI vs gastroenteritis. Lower concern for appendicitis/diverticulitis or renal stone/pyelo without tenderness on exam Plan: Labs, UA, , reassess Lab Data Result diagrams: 11/28/20 14:31 11/28/20 15:25 Labs: Lab Results 11/28/20 11/28/20 11/28/20 Range/Units 14:31 14:31 14:31 WBC 4.2 L (4.8-10.8) X10*3/uL RBC 4.55 (4.20-5.50) X10*6/uL Hgb 11.6 L (12.0-16.0) g/dl Hct 37.8 (37-47) % MCV 83.1 (80-98) fL MCH 25.5 L (27.0-33.0) pg MCHC 30.7 L (31.0-35.0) g/dl RDW 15.0 (11.0-16.0) % Plt Count 262 (160-400) X10*3/uL MPV 10.2 (9.4-12.3) fL Immature Gran % (Auto) 0.0 (0.0-0.4) % Neut % (Auto) 64.0 (45-73) % Lymph % (Auto) 26.7 (20-40) % [place] % (Auto) 7.2 (2-11) % Eos % (Auto) 1.4 (0-4) % Baso % (Auto) 0.7 (0-2) % Lymph # (Auto) 1.1 L (1.2-4.9) X10*3/uL [place] # (Auto) 0.3 (0.1-1.2) X10*3/uL Eos # (Auto) 0.1 (0.0-0.4) X10*3/uL Baso # (Auto) 0.0 (0.0-0.2) X10*3/uL Abs Immat Gran (auto) 0.00 (0.00-0.03) X10*3/uL Absolute Neuts (auto) 2.7 (2.0-8.3) X10*3/uL Absolute Nucleated RBC 0.000 (0.0-0.012) X10*3/uL Nucleated RBC % (auto) 0.0 (0.0-0.2) /100WBC Hold Blue Top SEE NOTE Sodium (135-145) mmol/L Potassium (3.3-5.1) mmol/L Chloride (96-108) mmol/L Carbon Dioxide (22-29) mmol/L Anion Gap (12-20) BUN (9-16) mg/dL Creatinine (0.5-1.4) mg/dL Estim Creat Clear Calc Estimated GFR Random Glucose (60-115) mg/dL Calcium (8.4-10.2) mg/dL Magnesium (1.6-2.6) mg/dL Total Bilirubin (0.0-1.0) mg/dL Direct Bilirubin (0.0-0.5) mg/dL AST (5-31) U/L ALT (0-31) U/L Alkaline Phosphatase (39-117) U/L Total Protein (6.5-8.0) g/dL Albumin (3.5-5.0) g/dL Lipase (8-78) U/L Urine Color YELLOW Urine Appearance HAZY Urine pH 7.5 (5.0-8.0) Ur Specific [place] 1.015 (1.005-1.025) Urine Protein NEG (NEG-TRACE) MG/DL Urine Glucose (UA) NEG (NEG) MG/DL Urine Ketones NEG (NEG) MG/DL Urine Blood NEG (NEG) Urine Nitrite NEG (NEG) Ur Leukocyte Esterase NEG (NEG) Urine Test (NEGATIVE) 11/28/20 11/28/20 Range/Units 14:31 15:25 WBC (4.8-10.8) X10*3/uL RBC (4.20-5.50) X10*6/uL Hgb (12.0-16.0) g/dl Hct (37-47) % MCV (80-98) fL MCH (27.0-33.0) pg MCHC (31.0-35.0) g/dl RDW (11.0-16.0) % Plt Count (160-400) X10*3/uL MPV (9.4-12.3) fL Immature Gran % (Auto) (0.0-0.4) % Neut % (Auto) (45-73) % Lymph % (Auto) (20-40) % [place] % (Auto) (2-11) % Eos % (Auto) (0-4) % Baso % (Auto) (0-2) % Lymph # (Auto) (1.2-4.9) X10*3/uL [place] # (Auto) (0.1-1.2) X10*3/uL Eos # (Auto) (0.0-0.4) X10*3/uL Baso # (Auto) (0.0-0.2) X10*3/uL Abs Immat Gran (auto) (0.00-0.03) X10*3/uL Absolute Neuts (auto) (2.0-8.3) X10*3/uL Absolute Nucleated RBC (0.0-0.012) X10*3/uL Nucleated RBC % (auto) (0.0-0.2) /100WBC Hold Blue Top Sodium 140 (135-145) mmol/L Potassium 3.9 (3.3-5.1) mmol/L Chloride 106 (96-108) mmol/L Carbon Dioxide 24 (22-29) mmol/L Anion Gap 14 (12-20) BUN 10 (9-16) mg/dL Creatinine 0.75 (0.5-1.4) mg/dL Estim Creat Clear Calc 104.4 Estimated GFR > 60 Random Glucose 87 (60-115) mg/dL Calcium 9.1 (8.4-10.2) mg/dL Magnesium 2.1 (1.6-2.6) mg/dL Total Bilirubin 0.4 (0.0-1.0) mg/dL Direct Bilirubin 0.2 (0.0-0.5) mg/dL AST 14 (5-31) U/L ALT 10 (0-31) U/L Alkaline Phosphatase 41 (39-117) U/L Total Protein 7.4 (6.5-8.0) g/dL Albumin 4.4 (3.5-5.0) g/dL Lipase 47 (8-78) U/L Urine Color Urine Appearance Urine pH (5.0-8.0) Ur Specific [place] (1.005-1.025) Urine Protein (NEG-TRACE) MG/DL Urine Glucose (UA) (NEG) MG/DL Urine Ketones (NEG) MG/DL Urine Blood (NEG) Urine Nitrite (NEG) Ur Leukocyte Esterase (NEG) Urine Test NEGATIVE (NEGATIVE) Discharge Plan Discharge Clinical Impression: Abdominal pain Patient Disposition: Home, Self-Care Instructions: Abdominal Pain (ED) Additional Instructions: Your blood work and urine were reassuring today in the emergency department Zofran is an antinausea medication, take as needed for nausea/vomiting It is important for you to follow-up with her primary care doctor, stay hydrated If her symptoms persist or worsen, pain persists or worsens, becomes unbearable, you develop fever return to the ED Prescriptions: New ondansetron HCl [Zofran] 4 mg tablet 4 mg PO Q8H PRN (Reason: nausea and vomiting) Qty: 10 RF: 0 No Action nystatin 100,000 unit/gram ointment 1 applic topical BID Qty: 15 RF: 1 Referrals: Amalia Fernandez MD [Primary Care Provider] - 2 days PMF Past Medical History Attestation statement: The following information was validated with the patient. Medical History COVID-19 Surgical History History of 3 sections Hx of tubal ligation Social History Social History Alcohol intake: never Smoking Status: Never smoker Advance Directives: No Advance Directives Information Provided: No Sexual orientation: Straight/Heterosexual Gender identity: female
[2020-11-28 14:38] LABS: MANUAL DIFF FLAG NO
[2020-11-28 14:40] LABS: Basophils Percent Auto 0.7 % (0-2); Eosinophils Absolute Auto 0.1 X10*3/uL (0.0-0.4); Eosinophils Percent Auto 1.4 % (0-4); Hematocrit 37.8 % (37-47); Hemoglobin 11.6 g/dl (12.0-16.0); Lymphocytes Absolute Auto 1.1 X10*3/uL (1.2-4.9); Lymphocytes Percent Auto 26.7 % (20-40); Mean Corpuscular HGB Conc 30.7 g/dl (31.0-35.0); Mean Corpuscular Hemoglobin 25.5 pg (27.0-33.0); Mean Corpuscular Volume 83.1 fL (80-98); Mean Platelet Volume 10.2 fL (9.4-12.3); Monocytes Absolute Auto 0.3 X10*3/uL (0.1-1.2); Monocytes Percent Auto 7.2 % (2-11); Neutrophils Absolute Auto 2.7 X10*3/uL (2.0-8.3); Platelet Count 262 X10*3/uL (160-400); Red Blood Count 4.55 X10*6/uL (4.20-5.50); White Blood Count 4.2 X10*3/uL (4.8-10.8)
[2020-11-28 14:42] LABS: Glucose Urine UA NEG (NEG); Leukocyte Esterase Urine NEG (NEG); Nitrite Urine NEG (NEG); PH 7.5 (5.0-8.0); Specific Gravity - Urine 1.015 (1.005-1.025); Urine Blood NEG (NEG); Urine Ketones NEG (NEG); Urine Protein NEG (NEG-TRACE)
[2020-11-28 14:44] LABS: UPreg QC Valid YES; Urine Pregnancy NEGATIVE (NEGATIVE)
[2020-11-28 14:45] LABS: Appearance Urine HAZY; Color Urine YELLOW
[2020-11-28 15:59] LABS: Alanine Aminotransferase 10 U/L (0-31); Albumin Level 4.4 g/dL (3.5-5.0); Alkaline Phosphatase 41 U/L (39-117); Anion Gap 14 (12-20); Aspartate Amino Transferase 14 U/L (5-31); Bilirubin Direct 0.2 mg/dL (0.0-0.5); Bilirubin Total 0.4 mg/dL (0.0-1.0); Blood Urea Nitrogen 10 mg/dL (9-16); Calcium 9.1 mg/dL (8.4-10.2); Carbon Dioxide 24 mmol/L (22-29); Chloride 106 mmol/L (96-108); Creatinine Clr Calc Pharmacy 104.4; Estimated Glomerular Filt Rate > 60; Glucose Random 87 mg/dL (60-115); Lipase 47 U/L (8-78); Magnesium 2.1 mg/dL (1.6-2.6); Potassium 3.9 mmol/L (3.3-5.1); Sodium 140 mmol/L (135-145); Total Protein 7.4 g/dL (6.5-8.0)
[2020-11-28 16:00] VITALS: BP 128/66; PULSE 89
== END 2020-11-28 16:23 | disposition home or self-care (01) ==
PROVIDERS: Physician Assistant; Emergency Provider Emergency Medicine; PCP Family Medicine
DX: R10.30 Lower abdominal pain, unspecified (principal); Z86.16 Personal history of COVID-19
CPT/HCPCS: 36415; 80048; 80076; 81003; 81025; 83690; 83735; 85025; 99283; 99284

== ENCOUNTER 2020-11-30 09:52 | Emergency (ER) | payer OTHER, SELFPAY ==
--- NOTE | ~2020-11-30 | CT_ITS ---
EXAMINATION: CT ABDOMEN AND PELVIS WITHOUT CONTRAST CLINICAL INFORMATION: Central abdominal pain and nausea. COMPARISON: None TECHNIQUE: Multidetector volumetric imaging was performed from the superior aspect of the liver through the pubic symphysis. Sagittal and coronal reformatted images were obtained on the technologist's workstation. This CT examination was performed using dose optimization techniques as appropriate, variously including the following: *Automated exposure control *Adjustment of mA and/or kV according to patient size (this includes techniques or standardized protocols for targeted exams where dose is matched to indication/reason for exam; i.e. extremities or head) *Use of iterative reconstruction technique DLP: 509 mGy-cm FINDINGS: LUNG BASES: The visualized lung bases are unremarkable. LIVER, GALLBLADDER, AND BILIARY TREE: The liver is normal in size, shape, and attenuation. No focal hepatic lesion or biliary ductal dilatation is present. The gallbladder is unremarkable with no evidence of radiopaque gallstones, gallbladder wall thickening, or obvious pericholecystic inflammatory changes. PANCREAS: Unremarkable. SPLEEN: Unremarkable. ADRENAL GLANDS: Unremarkable. KIDNEYS AND URETERS: The kidneys are normal in size, shape, and attenuation. No hydronephrosis, hydroureter, or calculi seen. No perinephric stranding. BLADDER: Unremarkable. GASTROINTESTINAL TRACT: There is scattered stool and gas seen throughout the colon without any significant distention. The small bowel loops are normal caliber. Appendix is normal caliber. No inflammatory process seen in the abdomen. ABDOMINAL WALL: Small umbilical hernia containing fat is noted. LYMPH NODES: Normal. VASCULAR: Unremarkable. PELVIC VISCERA: Uterus is anteverted and appears unremarkable. There are surgical christina in the adnexa likely from tubal sterilization. No free fluid and free air seen. OSSEOUS STRUCTURES: No lytic or sclerotic process seen. CT/CT abdomen pelvis wo con IMPRESSION: No acute intra-abdominal process seen. Mild constipation. Normal appendix.
[2020-11-30 10:22] VITALS: BP 114/72; PULSE 98; RESP 18; O2SAT 99; BMI 25.9
[2020-11-30 10:27] VITALS: TEMP 37.1
[2020-11-30 11:08] LABS: Glucose Urine UA NEG (NEG); Leukocyte Esterase Urine NEG (NEG); Nitrite Urine NEG (NEG); Urine Blood NEG (NEG); Urine Ketones NEG (NEG); Urine Protein NEG (NEG-TRACE)
[2020-11-30 11:11] LABS: Appearance Urine CLEAR; Color Urine YELLOW; UPreg QC Valid YES; Urine Pregnancy NEGATIVE (NEGATIVE)
--- NOTE | 2020-11-30 11:16 | ED.ABDPAIN ---
HPI - Abdominal Pain General Chief Complaint: Abdominal Pain Stated Complaint: abd pain Time Seen by Provider: 11/30/20 10:34 Source: patient Mode of arrival: ambulatory Limitations: no limitations History of Present Illness HPI narrative: 35 y/o female with history of x3, s/p tubal ligtion and COVID-19 on October 01, 2020 who presents to the ED with ongoing abdominal cramping for the last 1 week. She states since her COVID diagnosis she has been having stomach issues, including daily nausea since September. She was seen in the ER 3 days ago for the same cramping pain - all of her labs were normal and urine was negative. She has been taking the prescribed Zofran with improvement in the nausea but no improvement in cramping. She reports the pain is central, constant with worsening episodes similar to period cramps. She denies vomiting, diarrhea, fever, bloating, constipation, chest pain, SOB, vaginal discharge, bleeding or chance of . She called her PCP yesterday who dismissed all of her symptoms and told her the pain was in her head. MD elicited complaint: abdominal pain Onset (ago): day(s) Pain Consistency: constant Location: periumbilical Severity: moderate Quality: cramping Radiation: none Migration to: no migration Exacerbating factors: nothing Relieving factors: nothing Associated symptoms: nausea Related Data Patient : No Previous Rx's Medication Instructions Recorded nystatin 100,000 unit/gram topical 1 applic TOPICAL BID #15 g 07/13/20 ointment ondansetron HCl [Zofran] 4 mg PO Q8H PRN #10 tab 11/28/20 dicyclomine 20 mg PO TID #14 tab 11/30/20 Allergies Allergy/AdvReac Type Severity Reaction Status Date / Time No Known Allergies Allergy Unknown Verified 10/25/20 13:00 Review of Systems Review of Systems Constitutional: No Fever, No Chills ENT/Mouth: No sore throat, No Rhinorrhea, No Swallowing Difficulty Eyes: No Eye Pain, No Swelling, No Redness Cardiovascular: No Chest Pain, No SOB, No Orthopnea, No Edema Respiratory: No Cough, No Sputum, No Wheezing, No dyspnea Gastrointestinal: + Nausea, No Vomiting, No Diarrhea, + abdominal Pain, No Hematochezia, No Melena Genitourinary: No Dysuria, No Urinary Frequency, No Hematuria Musculoskeletal: No joint pain, No Myalgias Skin: No Skin Lesions, No rash Neuro: No Weakness, No Numbness, No Dizziness, No Headache Psych: + Anxiety/Panic, No Depression Heme/Lymph: No Bruising, No Lymphadenopathy Endocrine: No Polyuria, No Polydipsia Physical Exam Vital Signs: Vital Signs: Last Vital Signs Temp 98.7 F 11/30/20 10:27 Pulse 98 11/30/20 10:22 Resp 18 11/30/20 10:22 BP 114/72 11/30/20 10:22 Pulse Ox 99 11/30/20 10:22 Body Mass Index 25.9 Appearance: Alert. Oriented X3. No acute distress. Eyes: Pupils equal, round and reactive to light. ENT: Pharynx normal. Neck: Normal inspection. Neck supple. CVS: Normal heart rate and rhythm. Pulses normal. Respiratory: No respiratory distress. Breath sounds normal. Abdomen: Soft and nontender. +BS x4. No CVA tenderness. Skin: Skin warm and dry. Normal skin color. Normal skin turgor. No rashes. Extremities: No lower extremity edema. Neuro: Oriented X 3. Non-focal Course Course Course Narrative: 35 y/o female presenting with diffuse abdominal cramping x1 week and ongoing nausea for months since she was diagnosed with COVID. She has had normal lab work done twice in the last 2 weeks, last was 2 days ago. She denies constipation and signs and symptoms of infection. She appears well and exam is benign, no tenderness. Will get CT scan for further evaluation. Reevaluation(s) Reevaluation #1: CT scan showing mild constipation and gas. Results and management were discussed. She has a follow up appointment with GI in 1 week. She is tolerating PO. Will start Bentyl and Simethicone and have her follow up with GI and her PCP. She is agreeable with plan and encouraged to come back to the ER if pain worsens or changes. MDM - Abdominal Pain Lab Data Labs: Lab Results 11/30/20 11/30/20 Range/Units 10:58 10:58 Urine Color YELLOW Urine Appearance CLEAR Urine pH 8.0 (5.0-8.0) Ur Specific [place] 1.010 (1.005-1.025) Urine Protein NEG (NEG-TRACE) MG/DL Urine Glucose (UA) NEG (NEG) MG/DL Urine Ketones NEG (NEG) MG/DL Urine Blood NEG (NEG) Urine Nitrite NEG (NEG) Ur Leukocyte Esterase NEG (NEG) Urine Test NEGATIVE (NEGATIVE) Critical Care Time Critical Care Time Critical Care Time: No Discharge Plan Discharge Clinical Impression: Abdominal cramping Patient Disposition: Home, Self-Care Instructions: Constipation (ED), Gas and Bloating (ED), Abdominal Pain (ED) Additional Instructions: Your CT scan today showed mild gas and constipation. Recommend trial of simethicone for gas pain and cramps. Found over the counter. Take the prescribed medication as needed for cramping and intestinal spasms. Follow up with GI as scheduled. Recommend keeping a food diary. Follow up with your doctor as needed. If you have worsening pain or develop severe nausea and vomiting come back to the ER for further evaluation. Prescriptions: New dicyclomine 20 mg tablet 20 mg PO TID Qty: 14 RF: 0 No Action ondansetron HCl [Zofran] 4 mg tablet 4 mg PO Q8H PRN (Reason: nausea and vomiting) Qty: 10 RF: 0 nystatin 100,000 unit/gram ointment 1 applic topical BID Qty: 15 RF: 1 PMFSH Past Medical History Attestation statement: The following information was validated with the patient. Medical History COVID-19 Surgical History History of 3 sections Hx of tubal ligation Social History Social History Alcohol intake: never Smoking Status: Never smoker Advance Directives: Yes Advance Directives Information Provided: No Advance Directives on File: No Sexual orientation: Straight/Heterosexual Gender identity: female
--- NOTE | 2020-11-30 12:00 | PC.NURSE ---
pt resting on stretcher awaiting CT results. No distress observed.
== END 2020-11-30 12:50 | disposition home or self-care (01) ==
PROVIDERS: Physician Assistant; Emergency Provider Emergency Medicine
DX: R10.33 Periumbilical pain (principal); R11.0 Nausea; Z20.822 Contact with and (suspected) exposure to COVID-19
CPT/HCPCS: 74176; 81003; 81025; 99284

== ENCOUNTER → 2020-12-07 10:32 | Outpatient (BNVA) | payer BC, SELFPAY | PROVIDERS: Visit Provider Physician Assistant ==

== ENCOUNTER 2021-01-03 09:38 | Emergency (ER) | payer BC, SELFPAY ==
--- NOTE | ~2021-01-03 | XR_ITS ---
EXAMINATION: XR CHEST CLINICAL INFORMATION: Chest pain COMPARISON: Previous chest x-ray October 2020 TECHNIQUE: Frontal view of the chest was obtained. FINDINGS: No significant abnormality is noted involving the heart, lungs, mediastinum, bony thorax or soft tissues. XR/XR chest 1V IMPRESSION: Unremarkable examination.
[2021-01-03 09:46] VITALS: BP 117/69; PULSE 101; RESP 19; TEMP 36.9; O2SAT 100; BMI 25.9
[2021-01-03 10:26] LABS: MANUAL DIFF FLAG NO
[2021-01-03 10:29] LABS: Basophils Percent Auto 0.7 % (0-2); Hematocrit 38.1 % (37-47); Hemoglobin 12.2 g/dl (12.0-16.0); Imm Gran Abs Auto 0.01 X10*3/uL (0.00-0.03); Imm Gran Pct Auto 0.2 % (0.0-0.4); Lymphocytes Percent Auto 24.5 % (20-40); Mean Corpuscular Hemoglobin 26.9 pg (27.0-33.0); Mean Corpuscular Volume 84.1 fL (80-98); Mean Platelet Volume 9.7 fL (9.4-12.3); Monocytes Absolute Auto 0.3 X10*3/uL (0.1-1.2); Monocytes Percent Auto 8.2 % (2-11); Neutrophils Absolute Auto 2.7 X10*3/uL (2.0-8.3); Neutrophils Percent Auto 65.4 % (45-73); Platelet Count 257 X10*3/uL (160-400); Red Blood Count 4.53 X10*6/uL (4.20-5.50); Red Cell Distribution Width 16.9 % (11.0-16.0); White Blood Count 4.2 X10*3/uL (4.8-10.8)
--- NOTE | 2021-01-03 10:34 | ED_ITS ---
HPI - Chest Pain General Chief Complaint: Chest Pain Stated Complaint: chest pain Time Seen by Provider: 01/03/21 10:01 Source: patient Mode of arrival: ambulatory Limitations: no limitations History of Present Illness HPI narrative: 35 y/o female with history of COVID-19 in September 2019, now s/p COVID vaccine x2 with ongoing probable complications of COVID including palpitations, chest pain, and abdominal pain for several months who presents back to the ED today with c/o 2 days of intermittent sharp left sided chest pain that radiates to her left shoulder. She states the pain started when she was playing minigolf. It comes and goes and she currently has no pain. She also reports feeling intermittent palpitations. She has had these problems on/off since she was diagnosed with COVID. She saw a [facility] and recently had a Holter monitor revealing PVC's and a normal ECHO. She denies shortness of breath or WEBER. No fever, chills, N/V or diaphoresis. No LE pain or cramping. Not on control. MD complaint: chest pain Pertinent past history: other (hx COVID-19) Onset (ago): day(s) (2) Timing of current episode: episodic Prior episodes: Yes Onset: during rest Pain location: left chest Pain radiation: left shoulder Severity: moderate Pain scale (0-10): 7 Quality: sharp Relieving factors: nothing Exacerbating factors: nothing Treatment prior to arrival: none Risk Factors Coronary artery disease risk factors: none Thoracic aortic dissection risk factors: none Related Data On Oral Contraceptives: No Previous Rx's Medication Instructions Recorded nystatin 100,000 unit/gram topical 1 applic TOPICAL BID #15 g 07/13/20 ointment ondansetron HCl [Zofran] 4 mg PO Q8H PRN #10 tab 11/28/20 dicyclomine 20 mg PO TID #14 tab 11/30/20 ondansetron 4 mg disintegrating 4 mg PO DAILY #20 tab 12/07/20 tablet Allergies Allergy/AdvReac Type Severity Reaction Status Date / Time No Known Allergies Allergy Unknown Verified 01/03/21 09:46 Review of Systems Review of Systems: Constitutional: No Fever, No Chills ENT/Mouth: No sore throat, No Swallowing Difficulty Cardiovascular: + Chest Pain, No SOB, No Orthopnea, No Edema Respiratory: No Cough, No Sputum, No Wheezing, No dyspnea Gastrointestinal: No Nausea, No Vomiting, No Diarrhea, No abdominal Pain Genitourinary: No Dysuria, No Urinary Frequency, No Hematuria Musculoskeletal: + joint pain, No Myalgias Skin: No Skin Lesions, No rash Neuro: No Weakness, No Numbness, No Dizziness, No Headache Psych: No Anxiety/Panic, No Depression Heme/Lymph: No Bruising, No Lymphadenopathy PMFSH Past Medical History Attestation statement: The following information was validated with the patient. Medical History COVID-19 Surgical History History of 3 sections Hx of tubal ligation Social History Social History Alcohol intake: never Smoking Status: Never smoker Advance Directives: No Advance Directives Information Provided: No Patient : No Sexual orientation: Straight/Heterosexual Gender identity: female Physical Exam Vital Signs: Vital Signs: Last Vital Signs Temp 98.4 F 01/03/21 09:46 Pulse 101 H 01/03/21 09:46 Resp 19 01/03/21 09:46 BP 117/69 01/03/21 09:46 Pulse Ox 100 01/03/21 09:46 Body Mass Index 25.9 Appearance: Alert. Oriented X3. No acute distress. Eyes: Pupils equal, round and reactive to light. ENT: Pharynx normal. Neck: Normal inspection. Neck supple. CVS: Normal heart rate and rhythm. Pulses normal. No chest wall tenderness. Respiratory: No respiratory distress. Breath sounds normal. Abdomen: Soft and nontender. +BS x4 Skin: Skin warm and dry. Normal skin color. Normal skin turgor. No rashes. Extremities: No lower extremity edema. Negative Loraine's sign Neuro: Oriented X 3. No motor deficit. No sensory deficit. Course Course Course Narrative: 35 y/o female presenting with intermittent left sided chest pain and palpitations for the last 2 dyas. On/off since COVID diagnosis about 5 months ago. She has had an extensive cardiac workup. Holter monitor revealed in frequent PVC's. She currently has no chest pain and appears well. Will repeat EKG, CXR, labs including troponin and DDIMER. Reevaluation(s) Reevaluation #1: Lab workup, EKG and CXR are unremarkable. Etiology of her acute on chronic chest pain is unclear, possibly a complication of COVID possibly anxiety related. She remains chest pain free here and appears well. 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 Patient agrees with plan. MDM - Chest Pain Medical Records Data Attestation: I reviewed the patient's medical records. Lab Data Attestation: I reviewed the patient's lab results. Result diagrams: 01/03/21 10:19 01/03/21 10:19 Labs: Lab Results 01/03/21 01/03/21 01/03/21 Range/Units 10:19 10:19 10:19 WBC 4.2 L (4.8-10.8) X10*3/uL RBC 4.53 (4.20-5.50) X10*6/uL Hgb 12.2 (12.0-16.0) g/dl Hct 38.1 (37-47) % MCV 84.1 (80-98) fL MCH 26.9 L (27.0-33.0) pg MCHC 32.0 (31.0-35.0) g/dl RDW 16.9 H (11.0-16.0) % Plt Count 257 (160-400) X10*3/uL MPV 9.7 (9.4-12.3) fL Immature Gran % (Auto) 0.2 (0.0-0.4) % Neut % (Auto) 65.4 (45-73) % Lymph % (Auto) 24.5 (20-40) % [place] % (Auto) 8.2 (2-11) % Eos % (Auto) 1.0 (0-4) % Baso % (Auto) 0.7 (0-2) % Lymph # (Auto) 1.0 L (1.2-4.9) X10*3/uL [place] # (Auto) 0.3 (0.1-1.2) X10*3/uL Eos # (Auto) 0.0 (0.0-0.4) X10*3/uL Baso # (Auto) 0.0 (0.0-0.2) X10*3/uL Abs Immat Gran (auto) 0.01 (0.00-0.03) X10*3/uL Absolute Neuts (auto) 2.7 (2.0-8.3) X10*3/uL Absolute Nucleated RBC 0.000 (0.0-0.012) X10*3/uL Nucleated RBC % (auto) 0.0 (0.0-0.2) /100WBC D-Dimer < 200 NG/ML Hold Blue Top SEE NOTE Sodium 139 (135-145) mmol/L Potassium 3.9 (3.3-5.1) mmol/L Chloride 107 (96-108) mmol/L Carbon Dioxide 26 (22-29) mmol/L Anion Gap 10 L (12-20) BUN 9 (9-16) mg/dL Creatinine 0.75 (0.5-1.4) mg/dL Estim Creat Clear Calc 105.0 Estimated GFR > 60 Random Glucose 93 (60-115) mg/dL Calcium 9.5 (8.4-10.2) mg/dL Magnesium 1.9 (1.6-2.6) mg/dL Total Bilirubin 0.5 (0.0-1.0) mg/dL Direct Bilirubin 0.2 (0.0-0.5) mg/dL AST 13 (5-31) U/L ALT 8 (0-31) U/L Alkaline Phosphatase 38 L (39-117) U/L Troponin I High Sens (<3.5-17.0) ng/L B-Natriuretic Peptide (<100) pg/mL Total Protein 7.1 (6.5-8.0) g/dL Albumin 4.4 (3.5-5.0) g/dL TSH (0.32-4.0) uIU/mL 01/03/21 01/03/21 Range/Units 10:19 10:19 WBC (4.8-10.8) X10*3/uL RBC (4.20-5.50) X10*6/uL Hgb (12.0-16.0) g/dl Hct (37-47) % MCV (80-98) fL MCH (27.0-33.0) pg MCHC (31.0-35.0) g/dl RDW (11.0-16.0) % Plt Count (160-400) X10*3/uL MPV (9.4-12.3) fL Immature Gran % (Auto) (0.0-0.4) % Neut % (Auto) (45-73) % Lymph % (Auto) (20-40) % [place] % (Auto) (2-11) % Eos % (Auto) (0-4) % Baso % (Auto) (0-2) % Lymph # (Auto) (1.2-4.9) X10*3/uL [place] # (Auto) (0.1-1.2) X10*3/uL Eos # (Auto) (0.0-0.4) X10*3/uL Baso # (Auto) (0.0-0.2) X10*3/uL Abs Immat Gran (auto) (0.00-0.03) X10*3/uL Absolute Neuts (auto) (2.0-8.3) X10*3/uL Absolute Nucleated RBC (0.0-0.012) X10*3/uL Nucleated RBC % (auto) (0.0-0.2) /100WBC D-Dimer NG/ML Hold Blue Top Sodium (135-145) mmol/L Potassium (3.3-5.1) mmol/L Chloride (96-108) mmol/L Carbon Dioxide (22-29) mmol/L Anion Gap (12-20) BUN (9-16) mg/dL Creatinine (0.5-1.4) mg/dL Estim Creat Clear Calc Estimated GFR Random Glucose (60-115) mg/dL Calcium (8.4-10.2) mg/dL Magnesium (1.6-2.6) mg/dL Total Bilirubin (0.0-1.0) mg/dL Direct Bilirubin (0.0-0.5) mg/dL AST (5-31) U/L ALT (0-31) U/L Alkaline Phosphatase (39-117) U/L Troponin I High Sens < 3.5 (<3.5-17.0) ng/L B-Natriuretic Peptide 13 (<100) pg/mL Total Protein (6.5-8.0) g/dL Albumin (3.5-5.0) g/dL TSH 0.77 (0.32-4.0) uIU/mL ECG Data ECG #1: Attestation: I personally reviewed and interpreted this ECG as follows: ECG interpretation date: 01/03/21 ECG interpretation time: 10:44 Prior ECG tracings: available for review Interpretation: sinus tachycardia, HR 103 bpm, normal NM interval, normal QTc, No ST segment elevations or depressions. Critical Care Time Critical Care Time Critical Care Time: No Discharge Plan Discharge Clinical Impression: Atypical chest pain Patient Disposition: Home, Self-Care Instructions: Chest Pain (ED) Additional Instructions: Your EKG today was unremarkable. You lab workup was normal. Cause of your chest pain is unknown but life threatening causes have been ruled out. Recommend following back up with your Mobile [facility] Vehicle Operator. If you have worsening symptoms come back to the ER for further evaluation. Prescriptions: No Action ondansetron HCl [Zofran] 4 mg tablet 4 mg PO Q8H PRN (Reason: nausea and vomiting) Qty: 10 RF: 0 dicyclomine 20 mg tablet 20 mg PO TID Qty: 14 RF: 0 nystatin 100,000 unit/gram ointment 1 applic topical BID Qty: 15 RF: 1 ondansetron 4 mg tablet,disintegrating 4 mg PO DAILY Qty: 20 RF: 0
[2021-01-03 10:37] LABS: D Dimer < 200 NG/ML
[2021-01-03 10:55] LABS: Alanine Aminotransferase 8 U/L (0-31); Albumin Level 4.4 g/dL (3.5-5.0); Alkaline Phosphatase 38 U/L (39-117); Anion Gap 10 (12-20); Aspartate Amino Transferase 13 U/L (5-31); Bilirubin Direct 0.2 mg/dL (0.0-0.5); Bilirubin Total 0.5 mg/dL (0.0-1.0); Blood Urea Nitrogen 9 mg/dL (9-16); Calcium 9.5 mg/dL (8.4-10.2); Carbon Dioxide 26 mmol/L (22-29); Chloride 107 mmol/L (96-108); Estimated Glomerular Filt Rate > 60; Glucose Random 93 mg/dL (60-115); Magnesium 1.9 mg/dL (1.6-2.6); Potassium 3.9 mmol/L (3.3-5.1); Sodium 139 mmol/L (135-145); Total Protein 7.1 g/dL (6.5-8.0)
[2021-01-03 10:59] LABS: B Type Natriuretic Peptide 13 pg/mL (<100); Troponin-I High Sensitivity < 3.5 ng/L (<3.5-17.0)
[2021-01-03 11:17] LABS: TSH reflex Free T4 0.77 uIU/mL (0.32-4.0)
--- NOTE | 2021-01-04 | ECG_ITS ---
Test Reason : CHEST PAIN Blood Pressure : / mmHG Vent. Rate : 103 BPM Atrial Rate : 103 BPM P-R Int : 138 ms QRS Dur : 066 ms QT Int : 368 ms P-R-T Axes : 057 070 013 degrees QTc Int : 482 ms Sinus tachycardia Nonspecific ST and T wave abnormality Borderline ECG When compared with ECG of 14-NOV-2020 13:05, No significant change was found Referred By: Odalis Mckeon Electronically Signed By:CINDA CHAMBERS
== END 2021-01-03 11:45 | disposition home or self-care (01) ==
PROVIDERS: Physician Assistant; Emergency Provider Emergency Medicine
DX: R07.89 Other chest pain (principal); R00.0 Tachycardia, unspecified; Z86.16 Personal history of COVID-19
CPT/HCPCS: 36415; 71045; 80048; 80076; 83735; 83880; 84443; 84484; 85025; 85379; 93005; 99283

== ENCOUNTER 2021-01-06 17:18 | Emergency (ER) | payer BC, SELFPAY ==
[2021-01-06 17:26] VITALS: BP 123/76; PULSE 93; RESP 12; TEMP 36.7; O2SAT 100; BMI 26.1
[2021-01-06 19:06] VITALS: BP 129/78; PULSE 78; RESP 18; TEMP 36.6; O2SAT 100
[2021-01-06 19:32] LABS: MANUAL DIFF FLAG NO
[2021-01-06 19:34] LABS: Basophils Percent Auto 0.6 % (0-2); Eosinophils Percent Auto 0.6 % (0-4); Hematocrit 36.4 % (37-47); Hemoglobin 11.7 g/dl (12.0-16.0); Imm Gran Abs Auto 0.01 X10*3/uL (0.00-0.03); Imm Gran Pct Auto 0.2 % (0.0-0.4); Lymphocytes Absolute Auto 1.2 X10*3/uL (1.2-4.9); Lymphocytes Percent Auto 22.4 % (20-40); Mean Corpuscular HGB Conc 32.1 g/dl (31.0-35.0); Mean Corpuscular Hemoglobin 26.8 pg (27.0-33.0); Mean Corpuscular Volume 83.3 fL (80-98); Mean Platelet Volume 9.7 fL (9.4-12.3); Monocytes Absolute Auto 0.4 X10*3/uL (0.1-1.2); Monocytes Percent Auto 6.9 % (2-11); Neutrophils Absolute Auto 3.6 X10*3/uL (2.0-8.3); Neutrophils Percent Auto 69.3 % (45-73); Platelet Count 263 X10*3/uL (160-400); Red Blood Count 4.37 X10*6/uL (4.20-5.50); Red Cell Distribution Width 16.1 % (11.0-16.0); White Blood Count 5.2 X10*3/uL (4.8-10.8)
--- NOTE | 2021-01-06 19:37 | ED.NAVMDI ---
HPI - Nausea/Vomiting/Diarrhea General Chief complaint: Nausea/Vomiting/Diarrhea Stated complaint: Abd pain Time Seen by Provider: 01/06/21 18:33 Source: patient Mode of arrival: ambulatory Limitations: no limitations History of Present Illness HPI Narrative: 35 y/o female of COVID-19 in September 2019, now s/p COVID vaccine x2 with ongoing probable complications of COVID including palpitations, chest pain, and abdominal pain for several months presents with 2 days of nausea and vomiting. She was recently seen here for chest pain and had negative workup. She was seen by a GI doctor in [place] 3 weeks ago and had an EGD showing inflammation so she was started on Pepcid. She states her symptoms were decently controlled until 2 days ago. She has recurrent vomiting of food contents and mucus when she tries to eat. She has upper abdominal pain from dry heaving. No fever, chills, diarrhea, constipation or sick contacts. No chance of , s/p tubal ligation. She has had this problem recurrently over the last 5 months since she was diagnosed with COVID. She tried Zofran at 4pm, has not vomited since but still is nauseated. MD elicited complaint: nausea and vomiting Onset (ago): day(s) (2) Description of vomiting: food contents Associated nausea: Yes Associated abdominal pain: Yes Location of pain: epigastric Pain consistency: intermittent Severity: moderate Quality: aching Exacerbating factors: eating Relieving factors: none Related Data Home Medications Medication Instructions Recorded Confirmed lorazepam 1 tab PO TID PRN 01/06/21 01/06/21 ranitidine HCl 75 mg 01/06/21 Previous Rx's Medication Instructions Recorded ondansetron HCl [Zofran] 4 mg PO Q8H PRN #10 tab 11/28/20 metoclopramide HCl [Reglan] 10 mg PO Q6H PRN #10 tab 01/06/21 Allergies Allergy/AdvReac Type Severity Reaction Status Date / Time No Known Allergies Allergy Unknown Verified 01/03/21 09:46 Review of Systems Review of Systems: Constitutional: No Fever, No Chills Cardiovascular: No Chest Pain, No SOB Respiratory: No Cough, No Sputum Gastrointestinal: + Nausea, + Vomiting, No Diarrhea, + abdominal Pain Genitourinary: No Dysuria, No Urinary Frequency, No Hematuria Musculoskeletal: No joint pain, No Myalgias Skin: No Skin Lesions, No rash Neuro: No Weakness, No Numbness, No Dizziness, No Headache Heme/Lymph: No Bruising, No Lymphadenopathy Gastrointestinal: Gastrointestinal: Reports nausea PMFSH Past Medical History Attestation statement: The following information was validated with the patient. Medical History COVID-19 Surgical History History of 3 sections Hx of tubal ligation Social History Social History Alcohol intake: never Smoking Status: Never smoker Use of substances other than those prescribed or required for medical reasons: No Advance Directives: No Advance Directives Information Provided: Yes Patient : No Sexual orientation: Straight/Heterosexual Gender identity: female Physical Exam Vital Signs: Vital Signs: Last Vital Signs Temp 97.9 F 01/06/21 19:06 Pulse 88 01/06/21 20:47 Resp 17 01/06/21 20:47 BP 121/71 01/06/21 20:47 Pulse Ox 100 01/06/21 20:47 Body Mass Index 26.1 Appearance: Alert. Oriented X3. No acute distress. Eyes: Pupils equal, round and reactive to light. ENT: Pharynx normal. Neck: Normal inspection. Neck supple. CVS: Normal heart rate and rhythm. Pulses normal. Respiratory: No respiratory distress. Breath sounds normal. Abdomen: Soft with mild epigastric tenderness. No rebound or guarding. +BS x4 Skin: Skin warm and dry. Normal skin color. Normal skin turgor. No rashes. Extremities: No lower extremity edema. Neuro: Oriented X 3. No motor deficit. No sensory deficit. Course Course Course Narrative: 35 y/o female presenting with recurrent N/V. Exam is unrevealing, she appears well. She had an unremarkable work up 3 days ago. Continues to c/o nausea. Will get repeat labs, treat with IVF and Reglan. Once nausea improves will give GI cocktail. She already has a negative CT scan a few months ago. Reevaluation(s) Reevaluation #1: Lab unremarkable. Symptoms improved. Tolerating PO. She has an appointment with her GI on Saturday. She is stable for d/c home with trial of PO reglan. MDM - Nausea/Vomiting/Diarrhea Lab Data Result diagrams: 01/06/21 19:24 01/06/21 19:24 Labs: Lab Results 01/06/21 01/06/21 01/06/21 Range/Units 19:24 19:24 19:44 WBC 5.2 (4.8-10.8) X10*3/uL RBC 4.37 (4.20-5.50) X10*6/uL Hgb 11.7 L (12.0-16.0) g/dl Hct 36.4 L (37-47) % MCV 83.3 (80-98) fL MCH 26.8 L (27.0-33.0) pg MCHC 32.1 (31.0-35.0) g/dl RDW 16.1 H (11.0-16.0) % Plt Count 263 (160-400) X10*3/uL MPV 9.7 (9.4-12.3) fL Immature Gran % (Auto) 0.2 (0.0-0.4) % Neut % (Auto) 69.3 (45-73) % Lymph % (Auto) 22.4 (20-40) % [place] % (Auto) 6.9 (2-11) % Eos % (Auto) 0.6 (0-4) % Baso % (Auto) 0.6 (0-2) % Lymph # (Auto) 1.2 (1.2-4.9) X10*3/uL [place] # (Auto) 0.4 (0.1-1.2) X10*3/uL Eos # (Auto) 0.0 (0.0-0.4) X10*3/uL Baso # (Auto) 0.0 (0.0-0.2) X10*3/uL Abs Immat Gran (auto) 0.01 (0.00-0.03) X10*3/uL Absolute Neuts (auto) 3.6 (2.0-8.3) X10*3/uL Absolute Nucleated RBC 0.000 (0.0-0.012) X10*3/uL Nucleated RBC % (auto) 0.0 (0.0-0.2) /100WBC Sodium 140 (135-145) mmol/L Potassium 3.7 (3.3-5.1) mmol/L Chloride 106 (96-108) mmol/L Carbon Dioxide 22 (22-29) mmol/L Anion Gap 16 (12-20) BUN 8 L (9-16) mg/dL Creatinine 0.74 (0.5-1.4) mg/dL Estim Creat Clear Calc 106.7 Estimated GFR > 60 Random Glucose 79 (60-115) mg/dL Calcium 9.5 (8.4-10.2) mg/dL Magnesium 2.0 (1.6-2.6) mg/dL Total Bilirubin 0.8 (0.0-1.0) mg/dL Direct Bilirubin 0.3 (0.0-0.5) mg/dL AST 18 (5-31) U/L ALT 9 (0-31) U/L Alkaline Phosphatase 40 (39-117) U/L Total Protein 7.4 (6.5-8.0) g/dL Albumin 4.6 (3.5-5.0) g/dL Urine Color YELLOW Urine Appearance CLEAR Urine pH 6.0 (5.0-8.0) Ur Specific [place] <= 1.005 (1.005-1.025) Urine Protein NEG (NEG-TRACE) MG/DL Urine Glucose (UA) NEG (NEG) MG/DL Urine Ketones 15 (NEG) MG/DL Urine Blood NEG (NEG) Urine Nitrite NEG (NEG) Ur Leukocyte Esterase NEG (NEG) Urine Test (NEGATIVE) 01/06/21 Range/Units 19:44 WBC (4.8-10.8) X10*3/uL RBC (4.20-5.50) X10*6/uL Hgb (12.0-16.0) g/dl Hct (37-47) % MCV (80-98) fL MCH (27.0-33.0) pg MCHC (31.0-35.0) g/dl RDW (11.0-16.0) % Plt Count (160-400) X10*3/uL MPV (9.4-12.3) fL Immature Gran % (Auto) (0.0-0.4) % Neut % (Auto) (45-73) % Lymph % (Auto) (20-40) % [place] % (Auto) (2-11) % Eos % (Auto) (0-4) % Baso % (Auto) (0-2) % Lymph # (Auto) (1.2-4.9) X10*3/uL [place] # (Auto) (0.1-1.2) X10*3/uL Eos # (Auto) (0.0-0.4) X10*3/uL Baso # (Auto) (0.0-0.2) X10*3/uL Abs Immat Gran (auto) (0.00-0.03) X10*3/uL Absolute Neuts (auto) (2.0-8.3) X10*3/uL Absolute Nucleated RBC (0.0-0.012) X10*3/uL Nucleated RBC % (auto) (0.0-0.2) /100WBC Sodium (135-145) mmol/L Potassium (3.3-5.1) mmol/L Chloride (96-108) mmol/L Carbon Dioxide (22-29) mmol/L Anion Gap (12-20) BUN (9-16) mg/dL Creatinine (0.5-1.4) mg/dL Estim Creat Clear Calc Estimated GFR Random Glucose (60-115) mg/dL Calcium (8.4-10.2) mg/dL Magnesium (1.6-2.6) mg/dL Total Bilirubin (0.0-1.0) mg/dL Direct Bilirubin (0.0-0.5) mg/dL AST (5-31) U/L ALT (0-31) U/L Alkaline Phosphatase (39-117) U/L Total Protein (6.5-8.0) g/dL Albumin (3.5-5.0) g/dL Urine Color Urine Appearance Urine pH (5.0-8.0) Ur Specific [place] (1.005-1.025) Urine Protein (NEG-TRACE) MG/DL Urine Glucose (UA) (NEG) MG/DL Urine Ketones (NEG) MG/DL Urine Blood (NEG) Urine Nitrite (NEG) Ur Leukocyte Esterase (NEG) Urine Test NEGATIVE (NEGATIVE) Discharge Plan Discharge Clinical Impression: Nausea & vomiting Qualifiers: Vomiting type: unspecified Vomiting Intractability: non-intractable Qualified Code(s): R11.2 - Nausea with vomiting, unspecified Patient Disposition: Home, Self-Care Instructions: Acute Nausea and Vomiting (ED) Additional Instructions: Your lab workup today was unremarkable. Stick to a bland diet while you are feeling unwell. Take the prescribed medication as needed for nausea. Follow up with your GI doctor. Prescriptions: New metoclopramide HCl [Reglan] 10 mg tablet 10 mg PO Q6H PRN (Reason: nausea and vomiting) Qty: 10 RF: 0 No Action ondansetron HCl [Zofran] 4 mg tablet 4 mg PO Q8H PRN (Reason: nausea and vomiting) Qty: 10 RF: 0 lorazepam 1 mg tablet 1 tab PO TID PRN (Reason: anxiety) RF: 0 ranitidine HCl 75 mg Tablet 75 mg RF: 0
[2021-01-06] MEDS: Metoclopramide HCl 10 MG/2 ML VIAL IVPUSH (19:43)
[2021-01-06] MEDS: 0.9 % Sodium Chloride 1,000 ML 999 ML IVCONT (19:43)
[2021-01-06 19:48] VITALS: BP 116/68; PULSE 84; RESP 17; O2SAT 99
[2021-01-06 20:01] LABS: Glucose Urine UA NEG (NEG); Leukocyte Esterase Urine NEG (NEG); Nitrite Urine NEG (NEG); Specific Gravity - Urine <= 1.005 (1.005-1.025); Urine Blood NEG (NEG); Urine Ketones 15 MG/DL (NEG); Urine Protein NEG (NEG-TRACE)
[2021-01-06 20:02] LABS: Appearance Urine CLEAR; Color Urine YELLOW
[2021-01-06 20:03] LABS: Alanine Aminotransferase 9 U/L (0-31); Albumin Level 4.6 g/dL (3.5-5.0); Alkaline Phosphatase 40 U/L (39-117); Anion Gap 16 (12-20); Aspartate Amino Transferase 18 U/L (5-31); Bilirubin Direct 0.3 mg/dL (0.0-0.5); Bilirubin Total 0.8 mg/dL (0.0-1.0); Blood Urea Nitrogen 8 mg/dL (9-16); Calcium 9.5 mg/dL (8.4-10.2); Carbon Dioxide 22 mmol/L (22-29); Chloride 106 mmol/L (96-108); Creatinine Clr Calc Pharmacy 106.7; Estimated Glomerular Filt Rate > 60; Glucose Random 79 mg/dL (60-115); Potassium 3.7 mmol/L (3.3-5.1); Sodium 140 mmol/L (135-145); Total Protein 7.4 g/dL (6.5-8.0)
[2021-01-06 20:04] LABS: UPreg QC Valid YES; Urine Pregnancy NEGATIVE (NEGATIVE)
[2021-01-06 20:47] VITALS: BP 121/71; PULSE 88; RESP 17; O2SAT 100
[2021-01-06] MEDS: Magnesium Hydrox/Alum Hydrox 30 ML ORAL.SUSP PO (20:48)
[2021-01-06] MEDS: Lidocaine HCl Viscous 2 % 15 ML SOLUTION MUCOUS MEM (20:48)
[2021-01-06] MEDS: Omeprazole 40 MG CAPSULE.DR PO (20:48)
== END 2021-01-06 21:53 | disposition home or self-care (01) ==
PROVIDERS: Physician Assistant; Emergency Provider Emergency Medicine; PCP Family Medicine
DX: R11.2 Nausea with vomiting, unspecified (principal); Z86.16 Personal history of COVID-19
CPT/HCPCS: 36415; 80048; 80076; 81003; 81025; 83735; 85025; 96361; 96374; 99284; J2765

== ENCOUNTER → 2021-01-09 14:37 | Outpatient (BNVA) | payer BC, SELFPAY | PROVIDERS: Visit Provider Physician Assistant | DX: R11.0 Nausea (principal) ==

== ENCOUNTER 2021-01-13 12:56 | Outpatient (REF) | payer BC, SELFPAY ==
[2021-01-14 08:07] LABS: Follicle Stimulating Hormone 2.7 mIU/mL; Prolactin 5.8 ng/mL
== END 2021-01-13 12:57 | disposition home or self-care (01) ==
LOC: HO.LAB 12:56
PROVIDERS: PCP Family Medicine; Visit Provider Obstetrics & Gynecology
DX: Z30.09 Encounter for other general counseling and advice on contraception (principal); N91.2 Amenorrhea, unspecified; N93.9 Abnormal uterine and vaginal bleeding, unspecified
CPT/HCPCS: 36415; 81025; 83001; 84146

== ENCOUNTER 2021-01-16 15:11 | Outpatient (REF) | payer BC, SELFPAY ==
--- NOTE | ~2021-01-16 | US_ITS ---
EXAMINATION: US PELVIS COMPLETE CLINICAL INFORMATION: Abnormal uterine vaginal bleeding. COMPARISON: None TECHNIQUE: Transabdominal and transvaginal imaging of pelvis is performed. FINDINGS: The uterus is anteverted, heterogenous measuring 12.6 cm in length, 4.4 cm in AP and 6.7 cm in transverse dimension. The endometrium is thickened and vascular measuring 2.1 cm. Small anechoic cysts are seen in the cervix suggestive of nabothian cysts. Right ovary measures 3.2 x 2.8 x 2.5 cm and volume 11.7 mL. It appears unremarkable. Left ovary measures 3.8 x 3.0 x 2.7 cm and volume 16.1 mL. There is no free fluid in the cul-de-sac. US/US pelvic and transvaginal IMPRESSION: Anteverted heterogeneous uterus with no focal lesion seen. Small nabothian cysts in cervix. Thickened endometrium and increased vascularity, question pre-ovulatory phase. No free fluid in the cul-de-sac.
== END 2021-01-16 15:12 | disposition home or self-care (01) ==
LOC: HO.US 15:11
PROVIDERS: PCP Family Medicine; Visit Provider Obstetrics & Gynecology
DX: N93.9 Abnormal uterine and vaginal bleeding, unspecified (principal)
CPT/HCPCS: 76830; 76856

== ENCOUNTER 2021-01-18 10:31 | Outpatient (REF) | payer BC, SELFPAY ==
[2021-01-19 09:37] LABS: BV Int Neg Control Negative (Negative); BV Int Pos Control Positive (Positive)
== END 2021-01-18 10:32 | disposition home or self-care (01) ==
LOC: HO.LAB 10:31
PROVIDERS: PCP Family Medicine; Visit Provider Advanced Practice Midwife
DX: B37.3 Candidiasis of vulva and vagina (principal); Z20.2 Contact with and (suspected) exposure to infections with a predominantly sexual mode of transmission
CPT/HCPCS: 87480; 87510; 87660

== ENCOUNTER → 2021-01-20 15:28 | Outpatient (BNVA) | payer BC, SELFPAY | PROVIDERS: PCP Family Medicine; Visit Provider Obstetrics & Gynecology ==

== ENCOUNTER 2021-01-25 10:53 | Outpatient (REF) | payer BC, SELFPAY ==
[2021-01-29 13:27] LABS: Metanephrine, Free 52 pg/mL (<=57); Normetanephrines, Free 160 pg/mL (<=148); Total Metanephrine, Free 212 pg/mL (<=205)
== END 2021-01-25 10:54 | disposition home or self-care (01) ==
LOC: HO.LAB 10:53
PROVIDERS: PCP Family Medicine; Visit Provider Internal Medicine Cardiovascular Disease
DX: I49.8 Other specified cardiac arrhythmias (principal)
CPT/HCPCS: 36415; 83835

== ENCOUNTER 2021-01-26 10:23 | Emergency (ER) | payer BC, SELFPAY ==
--- NOTE | ~2021-01-26 | XR_ITS ---
EXAMINATION: XR CHEST CLINICAL INFORMATION: Chest tightness. COMPARISON: 01/03/2021 chest radiographs. TECHNIQUE: 2 views of the chest were obtained. FINDINGS: No significant abnormality is noted involving the heart, lungs, mediastinum, bony thorax or soft tissues. XR/XR chest 2V IMPRESSION: No acute cardiopulmonary process.
[2021-01-26 10:30] VITALS: BP 127/77; PULSE 101; RESP 18; TEMP 36.4; O2SAT 100; BMI 25.9
--- NOTE | 2021-01-26 10:38 | ECG_ITS ---
Test Reason : CHEST PAIN Blood Pressure : / mmHG Vent. Rate : 098 BPM Atrial Rate : 098 BPM P-R Int : 146 ms QRS Dur : 070 ms QT Int : 382 ms P-R-T Axes : 019 047 024 degrees QTc Int : 487 ms Normal sinus rhythm Prolonged QT Abnormal ECG No significant changes when compared with the previous EKG of 03 jan 2021 Referred By: Alicia Peguero Electronically Signed By:CINDA CHAMBERS
[2021-01-26 10:49] VITALS: PULSE 88
[2021-01-26 10:50] VITALS: BP 102/70; PULSE 95; RESP 17; O2SAT 99
--- NOTE | 2021-01-26 10:50 | ED_ITS ---
HPI - Chest Pain General Chief Complaint: Chest Pain Stated Complaint: chest tightness Time Seen by Provider: 01/26/21 10:38 Source: patient Mode of arrival: ambulatory Limitations: no limitations History of Present Illness HPI narrative: 35 y/o female of COVID-19 in September 2019, now s/p COVID vaccine x2 with ongoing probable complications of COVID including palpitations, chest pain, and abdominal pain, nausea and vomiting. Seen here in ED for chest pain 01/03 with negative w/u again 01/06 for nausea/vomiting with negative w/u. She was seen by a GI doctor in [place] 1 month ago and had an EGD showing infl ammation so she was started on Pepcid. She has recurrent vomiting of food contents and mucus when she tries to eat. She has upper abdominal pain from dry heaving. No fever, chills, diarrhea, constipation or sick contacts. No chance of , s/p tubal ligation. She has had this problem recurrently over the last 5 months since she was diagnosed with COVID. Seen by patient service associate and [place] approximately 1 month ago for cardiac complaints and had a negative workup including echo and Holter monitor. Seen yesterday by cardiology here and thought to have pots syndrome. Recommended to start salt tablets but patient tells me she is worried this may increase her blood pressure and so she has not started it. This morning at 06:30 she woke up started to get ready for the day and had some chest tightness with associated nausea. No vomiting, dizziness, shortness of breath, or diaphoresis. Took 1 mg of Ativan but continued to have symptoms and so brought herself into the emergency department MD complaint: chest discomfort Related Data Home Medications Medication Instructions Recorded Confirmed escitalopram oxalate 1 tab PO DAILY 01/26/21 01/26/21 lorazepam 1 tab PO BID 01/26/21 01/26/21 Previous Rx's Medication Instructions Recorded norgestimate 0.25 mg-ethinyl 1 tab PO DAILY #84 tab 01/13/21 estradiol 35 mcg tablet Allergies Allergy/AdvReac Type Severity Reaction Status Date / Time No Known Allergies Allergy Unknown Verified 01/26/21 10:33 Review of Systems Review of Systems: Yes all other systems are reviewed and are negative Constitutional: Constitutional: Reports no additional constitutional complaints, Denies body ache(s), Denies chills, Denies fever(s), Denies headache(s) and Denies weakness Eyes: Eyes: Reports no additional eye complaints and Denies change in vision ENT: Reports system reviewed and no additional complaints, except as docume nted, Denies dizziness, Denies headache(s), Denies nasal congestion, Denies nasal discharge and Denies neck pain Cardiovascular: Cardiovascular: Reports no additional cardiovascular complaints, Reports chest pain, Denies leg edema and Denies dyspnea Respiratory: Respiratory: Reports no additional respiratory complaints, Denies cough and Denies dyspnea Gastrointestinal: Gastrointestinal: Reports no additional gastrointestinal complaints, Denies abdominal pain, Denies diarrhea, Reports nausea and Denies vomiting Genitourinary: Genitourinary: Reports no additional female genitourinary complaints and Denies urinary incontinence Musculoskeletal: Musculoskeletal: Reports no additional musculoskeletal complaints, Denies back pain, Denies arthralgias, Denies joint swelling, Denies neck pain, Denies numbness and Denies tingling Integumentary/Breasts: Skin/Breast: Reports system reviewed and no additional complaints, except as docu and Denies rash Neurologic: Reports system reviewed and no additional complaints, except as documented, Denies Abnormal speech present, Denies dizziness, Denies headache(s), Denies numbness, Denies tingling and Denies weakness PMFSH Past Medical History Attestation statement: The following information was validated with the patient. Source: old records reviewed and nursing notes reviewed Medical History COVID-19 POTS (postural orthostatic tachycardia syndrome) Surgical History History of 3 sections Hx of tubal ligation Social History Social History Alcohol intake: never Patient Tobacco Use Status: Never used Tobacco Use of substances other than those prescribed or required for medical reasons: No Advance Directives: Yes Advance Directives Information Provided: Yes Advance Directives on File: No Patient : No Sexual orientation: Straight/Heterosexual Gender identity: female Physical Exam Vital Signs: Vital Signs: Last Vital Signs Temp 97.6 F 01/26/21 10:30 Pulse 95 01/26/21 10:50 Resp 17 01/26/21 10:50 BP 102/70 01/26/21 10:50 Pulse Ox 99 01/26/21 10:50 Body Mass Index 25.9 Const: General: cooperative, healthy appearing, comfortable and no acute distress Orientation/consciousness: patient oriented x3 Limitations: no limitations HENMT: Head: Yes normal to inspection Ears: hearing grossly normal bilaterally General nose exam: Normal external nose present Face and sinus: Yes normal facial exam Mouth: Normal oral and palatal mucosa present Throat: Yes posterior oropharynx normal Eyes: General: appearance normal, both eyes and all related structures Pupils: Equal, round and reactive pupils present Neck: Neck: Yes normal visual inspection Chest: Chest palpation & inspection: normal inspection of the chest Resp: Effort & Inspection: normal respiratory effort Auscultation: clear to auscultation bilaterally Cardio: Rate: regular rate Rhythm: regular rhythm Peripheral pulses: Peripheral pulses 2+ throughout GI: Inspection: Yes normal to inspection Palpation (GI): Soft to palpation and nontender Auscultation: normal bowel sounds Back/Spine/Pelvis: Thoracic/Lumbar Spine: thoracic and lumbar spine normal to inspection Skin: General skin exam: no rashes or lesions noted Neuro: General: patient oriented x3, no focal motor deficits and normal sensation to monofilament Cranial nerves: Yes Equal, round and reactive pupils present Cognition (Neuro): normal cognition Speech: No Abnormal speech present Gait exam (Neuro): Normal gait present Motor exam (neuro): 5/5 motor strength present throughout Sensory Exam: Normal double simultaneous stimulation for sensation Extrem: General: Yes normal to inspection, Yes no pedal edema and Yes no calf tenderness Course Course Course Narrative: 35 yo female With recurrent chest tightness, palpitations, nausea with multiple workups which were negative. Recent diagnosis of POTS and recommended to start salt tablets but has not started this yet. This morning woke up with chest tightness with associated nausea unrelieved with home Ativan. Will check labs, chest x-ray, EKG, repeat dose ativan. 1330-labs unremarkable. X-ray negative. EKG shows no ischemic changes. Patient is feeling improved. She was seen yesterday by Cardiology and was recommended she start salt tablets for her POTS syndrome. We discussed that she should start this. Patient had concern about her blood pressure being elevated by taking this we discussed this is not likely to happen. Reviewed worrisome signs and symptoms of when to return to the emergency department. Comfortable discharge home. MDM - Chest Pain MDM Narrative Medical decision making narrative: PE, ACS, anxiety Less likely PE with negative D-dimer Left likely ACS with negative troponin and no EKG which shows no ischemic changes Medical Records Data Attestation: I reviewed the patient's medical records. Lab Data Attestation: I reviewed the patient's lab results. Result diagrams: 01/26/21 10:52 01/26/21 10:52 Labs: Lab Results 01/26/21 01/26/21 01/26/21 Range/Units 10:52 10:52 10:52 WBC 4.2 L (4.8-10.8) X10*3/uL RBC 4.56 (4.20-5.50) X10*6/uL Hgb 12.2 (12.0-16.0) g/dl Hct 38.2 (37-47) % MCV 83.8 (80-98) fL MCH 26.8 L (27.0-33.0) pg MCHC 31.9 (31.0-35.0) g/dl RDW 16.2 H (11.0-16.0) % Plt Count 283 (160-400) X10*3/uL MPV 9.5 (9.4-12.3) fL Immature Gran % (Auto) 0.2 (0.0-0.4) % Neut % (Auto) 65.1 (45-73) % Lymph % (Auto) 26.3 (20-40) % Canadian % (Auto) 6.6 (2-11) % Eos % (Auto) 0.9 (0-4) % Baso % (Auto) 0.9 (0-2) % Lymph # (Auto) 1.1 L (1.2-4.9) X10*3/uL Canadian # (Auto) 0.3 (0.1-1.2) X10*3/uL Eos # (Auto) 0.0 (0.0-0.4) X10*3/uL Baso # (Auto) 0.0 (0.0-0.2) X10*3/uL Abs Immat Gran (auto) 0.01 (0.00-0.03) X10*3/uL Absolute Neuts (auto) 2.7 (2.0-8.3) X10*3/uL Absolute Nucleated RBC 0.000 (0.0-0.012) X10*3/uL Nucleated RBC % (auto) 0.0 (0.0-0.2) /100WBC PT 12.8 (10.8-13.0) SEC INR 1.1 (0.9-1.1) D-Dimer < 200 NG/ML Sodium 138 (135-145) mmol/L Potassium 3.8 (3.3-5.1) mmol/L Chloride 105 (96-108) mmol/L Carbon Dioxide 24 (22-29) mmol/L Anion Gap 13 (12-20) BUN 10 (9-16) mg/dL Creatinine 0.72 (0.5-1.4) mg/dL Estim Creat Clear Calc 109.4 Estimated GFR > 60 Random Glucose 91 (60-115) mg/dL Calcium 9.5 (8.4-10.2) mg/dL Magnesium 1.9 (1.6-2.6) mg/dL Total Bilirubin 0.4 (0.0-1.0) mg/dL Direct Bilirubin 0.2 (0.0-0.5) mg/dL AST 17 (5-31) U/L ALT 11 (0-31) U/L Alkaline Phosphatase 41 (39-117) U/L Troponin I High Sens (<3.5-17.0) ng/L Total Protein 7.4 (6.5-8.0) g/dL Albumin 4.5 (3.5-5.0) g/dL 01/26/21 Range/Units 10:52 WBC (4.8-10.8) X10*3/uL RBC (4.20-5.50) X10*6/uL Hgb (12.0-16.0) g/dl Hct (37-47) % MCV (80-98) fL MCH (27.0-33.0) pg MCHC (31.0-35.0) g/dl RDW (11.0-16.0) % Plt Count (160-400) X10*3/uL MPV (9.4-12.3) fL Immature Gran % (Auto) (0.0-0.4) % Neut % (Auto) (45-73) % Lymph % (Auto) (20-40) % Canadian % (Auto) (2-11) % Eos % (Auto) (0-4) % Baso % (Auto) (0-2) % Lymph # (Auto) (1.2-4.9) X10*3/uL Canadian # (Auto) (0.1-1.2) X10*3/uL Eos # (Auto) (0.0-0.4) X10*3/uL Baso # (Auto) (0.0-0.2) X10*3/uL Abs Immat Gran (auto) (0.00-0.03) X10*3/uL Absolute Neuts (auto) (2.0-8.3) X10*3/uL Absolute Nucleated RBC (0.0-0.012) X10*3/uL Nucleated RBC % (auto) (0.0-0.2) /100WBC PT (10.8-13.0) SEC INR (0.9-1.1) D-Dimer NG/ML Sodium (135-145) mmol/L Potassium (3.3-5.1) mmol/L Chloride (96-108) mmol/L Carbon Dioxide (22-29) mmol/L Anion Gap (12-20) BUN (9-16) mg/dL Creatinine (0.5-1.4) mg/dL Estim Creat Clear Calc Estimated GFR Random Glucose (60-115) mg/dL Calcium (8.4-10.2) mg/dL Magnesium (1.6-2.6) mg/dL Total Bilirubin (0.0-1.0) mg/dL Direct Bilirubin (0.0-0.5) mg/dL AST (5-31) U/L ALT (0-31) U/L Alkaline Phosphatase (39-117) U/L Troponin I High Sens < 3.5 (<3.5-17.0) ng/L Total Protein (6.5-8.0) g/dL Albumin (3.5-5.0) g/dL Imaging Data Chest x-ray: Attestation: I personally reviewed and interpreted this imaging study as follows: Radiologist's impression: [address] [id number] ReportSigned Patient: Amalia Kumari [facility]#: [id number]: 4Acct:[id number]/Sex: 35 / FADM Date: 01/26/21Loc: HO.EDAttending Dr: Ordering Physician: GREG NAJERA NP Date of Service: 01/26/21 Procedure(s): XR chest 2V Accession Number(s): [id number] cc: GREG NAJERA NP~ EXAMINATION: XR CHEST CLINICAL INFORMATION: Chest tightness. COMPARISON: 01/03/2021 chest radiographs. TECHNIQUE: 2 views of the chest were obtained. FINDINGS: No significant abnormality is noted involving the heart, lungs, mediastinum, bony thorax or soft tissues. XR/XR chest 2V IMPRESSION: No acute cardiopulmonary process. ECG Data ECG #1: Attestation: I personally reviewed and interpreted this ECG as follows: ECG interpretation date: 01/26/21 ECG interpretation time: 11:02 Interpretation: Sinus rhythm, rate of 98, normal IA, normal QRS, QTC prolonged at 487 Discharge Plan Discharge Clinical Impression: Atypical chest pain Patient Disposition: Home, Self-Care Instructions: Chest Pain (ED) Additional Instructions: Your x-ray, EKG and lab work were all unremarkable Consider starting salt tablets Prescriptions: No Action lorazepam 1 mg tablet 1 tab PO BID RF: 0 escitalopram oxalate 5 mg tablet 1 tab PO DAILY RF: 0 norgestimate-ethinyl estradiol [Sprintec (28)] 0.25-35 mg-mcg tablet 1 tab PO DAILY Qty: 84 RF: 3 Referrals: Reyes English DO [Primary Care Provider] - 2 days Interventions: ED Discharge Assessment Last Done: 01/26/21 14:01 Discharge Date/Time: 01/26/21 14:02
--- NOTE | 2021-01-26 11:04 | PC.NURSE ---
Patient is ambulatory to room complaining of chest pressure and tightness that started around 6am today. Pt states she felt a little clammy when it started. Pt is not clammy now. Pt states it is not a pain but pressure/tightness. She rates the pressure a 6/10. pt states she has a history of anxiety and took ativan 1 mg at 7am. Heplock placed in left ac with a 20 gauge insyte. Blood drawn for labs, site secured and flushed with ns.
[2021-01-26 11:06] LABS: MANUAL DIFF FLAG NO
[2021-01-26 11:10] LABS: Basophils Percent Auto 0.9 % (0-2); Eosinophils Percent Auto 0.9 % (0-4); Hematocrit 38.2 % (37-47); Hemoglobin 12.2 g/dl (12.0-16.0); Imm Gran Abs Auto 0.01 X10*3/uL (0.00-0.03); Imm Gran Pct Auto 0.2 % (0.0-0.4); Lymphocytes Absolute Auto 1.1 X10*3/uL (1.2-4.9); Lymphocytes Percent Auto 26.3 % (20-40); Mean Corpuscular HGB Conc 31.9 g/dl (31.0-35.0); Mean Corpuscular Hemoglobin 26.8 pg (27.0-33.0); Mean Corpuscular Volume 83.8 fL (80-98); Mean Platelet Volume 9.5 fL (9.4-12.3); Monocytes Absolute Auto 0.3 X10*3/uL (0.1-1.2); Monocytes Percent Auto 6.6 % (2-11); Neutrophils Absolute Auto 2.7 X10*3/uL (2.0-8.3); Neutrophils Percent Auto 65.1 % (45-73); Platelet Count 283 X10*3/uL (160-400); Red Blood Count 4.56 X10*6/uL (4.20-5.50); Red Cell Distribution Width 16.2 % (11.0-16.0); White Blood Count 4.2 X10*3/uL (4.8-10.8)
[2021-01-26] MEDS: LORazepam 2 MG/ML VIAL 0.5 MG IVPUSH (11:13)
[2021-01-26 11:31] LABS: Alanine Aminotransferase 11 U/L (0-31); Albumin Level 4.5 g/dL (3.5-5.0); Alkaline Phosphatase 41 U/L (39-117); Anion Gap 13 (12-20); Aspartate Amino Transferase 17 U/L (5-31); Bilirubin Direct 0.2 mg/dL (0.0-0.5); Bilirubin Total 0.4 mg/dL (0.0-1.0); Blood Urea Nitrogen 10 mg/dL (9-16); Calcium 9.5 mg/dL (8.4-10.2); Carbon Dioxide 24 mmol/L (22-29); Chloride 105 mmol/L (96-108); Creatinine Clr Calc Pharmacy 109.4; Estimated Glomerular Filt Rate > 60; Glucose Random 91 mg/dL (60-115); Magnesium 1.9 mg/dL (1.6-2.6); Potassium 3.8 mmol/L (3.3-5.1); Sodium 138 mmol/L (135-145); Total Protein 7.4 g/dL (6.5-8.0)
[2021-01-26 11:36] LABS: INTERNATIONAL NORM RATIO 1.1 (0.9-1.1); Prothrombin Time 12.8 SEC (10.8-13.0)
[2021-01-26 11:39] LABS: D Dimer < 200 NG/ML; Troponin-I High Sensitivity < 3.5 ng/L (<3.5-17.0)
== END 2021-01-26 14:02 | disposition home or self-care (01) ==
PROVIDERS: Nurse Practitioner Family; Emergency Provider Emergency Medicine; PCP Family Medicine
DX: R07.89 Other chest pain (principal); R00.2 Palpitations; Z86.16 Personal history of COVID-19; Z79.899 Other long term (current) drug therapy
CPT/HCPCS: 36415; 71046; 80048; 80076; 83735; 84484; 85025; 85379; 85610; 93005; 96374; 99285; J2060